=== PATIENT | female | born 1970 | race Caucasian/White ===

== ENCOUNTER 2017-02-02 15:26 | Inpatient (IN) | payer OTHER ==
[~2017-02-02] VITALS: Ht 170.2 cm; Wt 64.8 kg
[2017-02-02] VITALS (7 sets, daily range): BP systolic 111–149; BP diastolic 72–81; PULSE 89–123; RESP 16–29; O2SAT 97–98
[~2017-02-02 15:26] MED LIST: ARIP10TA16 PO; ASPI-973 PO; BIMA2.5D6 OD; BUTA-238 PO; CLOP75TA28 PO; ESTR2TAB2 PO; GABA800T2 PO; INSLIS SQ; METO25TA6 PO; MULT1CAP33 PO; PROG100C6 PO; THYR60TA2 PO; TOPI50TA88 PO; VENL225T3 PO; VERA240T97 PO; humalog insulin pump SUBQ
--- NOTE | 2017-02-02 15:56 | ED.REPORT ---
HPI-General Illness Date of Service Feb 02, 2017 ED Provider: Una Gregory MD Pt is a 46 year old female with a history of Type 1 DM who was sent to the ED via EMS from with concerns for multiple syncopal episodes last night. Her children report noticing some "shaking activity" during her syncope. Pt reports that she first started having syncopal episodes one month ago. She reports that at that time she went to [place] and was diagnosed with dehydration. She reports that subsequently she was placed on an antibiotic by her PCP, and her syncopal episodes ceased until yesterday. She had 3 syncopal episodes yesterday. Pt reports that prior to loosing consciousness she is able to feel her heart rate increasing and becoming diaphoretic. Post syncope, she heart short of breath and continuously diaphoretic. Pt denies any chest pain. She reports that she had a heart attack in 07/2015 and she had a STENT placed, she denies this episode feeling similar. Pt reports shortness of breath for the majority of the day today. Nursing Notes Stated Complaint: SYNCOPE Chief Complaint: General Complaint Nursing Notes Reviewed: Yes Allergies: Coded Allergies: Penicillins (Verified Allergy, Severe, ANAPHYLAXIS, 10/21/15) quetiapine (Verified Allergy, Unknown, 10/21/15) Uncoded Allergies: nicotine patch (Adverse Reaction, Intermediate, 03/26/13) Scheduled ([Testosterone Cr Comp]) 0.1 ML TOPICAL QAM DAB SMALL AMT TO WRISTS Amitriptyline (Amitriptyline) 25 Mg Tab 50-75 MG PO HS Aspirin (Aspirin) 81 Mg Tablet 81 MG PO DAILY Clopidogrel (Clopidogrel) 75 Mg Tablet 75 MG PO DAILY Estradiol (Estradiol) 2 Mg Tablet 2 MG PO QAM Gabapentin (Gabapentin) 800 Mg Tablet 1,600 MG PO BID EVENING AND AT HS Insulin Human Lispro (HumaLOG U100 Insulin Vial) 100 Unit/Ml Unit 0.9 UNITS SQ ASDIRECTED INSULILN 22 UNITS/DAY BASAL RATE PER INSULIN PUMP. Insulin Lispro (HumaLOG U100 Insulin Cartridge Refill) 100 Unit/1 Ml Cartridge 2 UNIT SUBQ TIDWM Methylphenidate (Methylphenidate) 10 Mg Tablet 10 MG PO DAILYWL Methylphenidate ER (Concerta) 36 Mg Tab.er.24 36 MG PO QAM Multivitamin (Multivitamins) 1 Each Capsule 1 EACH PO DAILY Progesterone,Micronized (Progesterone) 100 Mg Capsule 200 MG PO QAM Rosuvastatin Calcium (Rosuvastatin Calcium) 20 Mg Tablet 20 MG PO QAM Thyroid,Pork ([place] Thyroid) 60 Mg Tablet 60 MG PO EVERY OTHER DAY Venlafaxine ER (Venlafaxine ER) 225 Mg Tab.er.24 225 MG PO QAM Scheduled PRN Acetaminophen (Acetaminophen) 325 Mg Tablet 650 MG PO Q6H PRN PRN For Pain Gabapentin (Gabapentin) 800 Mg Tablet 1,600 MG PO QAM PRN PRN NEUROPATHIC PAIN Ibuprofen (Ibuprofen) 600 Mg Tablet 600 MG PO QID PRN PRN For Pain Miscellaneous Medications ([humalog insulin pump]) SUBQ General Time Seen by MD: 15:51 Chief Complaint Other (Syncope, Uncontrollable hyperglycemia) Hx Obtained From: Patient Arrived By: Walk-in (Sent from Urgent Care) Sudden in Onset?: No Onset Occurred: Yesterday Symptom Duration: Since onset Severity: Current: No pain currently Severity: Maximum: No pain Similar Sx Previous: Yes Past Medical History Past Medical History Notes: Admit to [facility] for DKA 10/2015, + CAD/troponins -> Taken to [facility] lab[facility] (complex anatomy - see cardiology notes, plan for possible intervention at [facility] possibly next month-not scheduled Past Medical History Gastroporesis Franky's disease Type 1 diabetes mellitus for 21+ years -peripheral neuropathy -History of DKA. History of alcohol abuse, quit four years ago. Hypothyroidism. LUANA plus BSO for painful endometriosis. History of difficulty emptying bladder, on Flomax Frontal lobe syndrome Sleep apnea PTSD Interstitial cystitis Adhesive capsulitis H. pylori infection Pancreatitis Reports: Coronary artery disease, Diabetes mellitus Reports: Depression, Migraines Past Surgical History Colonoscopy Tubal ligation Cholecystectomy Hysterectomy Caredaiac Cath - complex lesion involving LAD with significant collaterals Family History HI HTN Hyperlipidemia NO diabetes in family Reports: Cancer Smoking History Former Smoker Social History Alcohol abuse x25 years with 6 years of sobriety Alcohol Use: Denies alcohol use Drug Use: Denies drug use Other Social History: Local resident Ambulatory Status Independent Review of Systems Full Review of Systems Constitutional: Reports: Malaise, Weakness - generalized, Denies: Chills, Fever Respiratory: Reports: Shortness of breath, Denies: Non-productive cough, Wheezing Cardiovascular: Reports: Palpitations, Syncope, Denies: Chest pain GI: Denies: Abdominal pain, Constipation, Diarrhea, Nausea, Vomiting Female: Denies: Dysuria, Flank pain, Urinary frequency, Urinary urgency Musculoskeletal: Denies: Back pain, Extremity pain, Neck pain Skin: Reports Diaphoresis Neurologic: Reports: Shaking, Syncope, Denies: Change LOC, Dizziness, Headache, Weakness Complete sys rev & neg: except as marked. Physical Exam Vital Signs Vital Signs Date Time Temp Pulse Resp B/P Pulse Ox O2 Delivery O2 Flow Rate FiO2 02/02/17 16:49 123 29 149/79 98 Room Air 02/02/17 15:35 37.3 106 24 134/76 98 Room Air Initial VS: Reviewed Head / Eyes: Atraumatic, Normocephalic, PERRL Neck: Supple, Non-tender, Full range of motion Respiratory: Breath sounds normal, Clear to auscultation, No respiratory distress Abdomen / GI: Soft, Non-tender, No guarding, No rebound, No distention Skin: Warm, Dry, No cyanosis Neurologic: Alert, Oriented, Nonfocal General/Constitutional: Awake, Alert Appropriate Diaphoretic ENT: Atraumatic, Airway patent Mouth: Positive: Mucous membranes dry Cardiovascular: No murmurs Heart Rate / Rhythm: Positive: Tachycardia Ankle / Foot: Neurologic intact, Vascular intact 2nd and 3rd toe and ecchymotic with swelling at the base of the of the 2nd toe. Interpretation & Diagnostics Lab Results Interpretation Result Diagram: 02/02/17 1538 02/02/17 1600 Test 02/02/17 15:38 02/02/17 16:00 White Blood Count 11.9th/mm3 (3.8-10.1) Red Blood Count 4.22mil/mm3 (3.90-5.20) Hemoglobin 13.6g/dL (12.0-15.6) Hematocrit 38.0% (35.0-46.0) Mean Corpuscular Volume 90.0fL (81-100) Mean Corpuscular Hemoglobin 32.2pg (27.0-35.0) Mean Corpuscular Hemoglobin Concent 35.8% (32.0-37.0) Red Cell Distribution Width 12.6% (12.3-15.4) Platelet Count 168bil/L (150-400) Neutrophils (%) (Auto) 67% (40-74) Lymphocytes (%) (Auto) 25% (14-46) Monocytes (%) (Auto) 7% (4-12) Eosinophils (%) (Auto) 1% (0-5) Basophils (%) (Auto) 0% (0-3) Activated Partial Thromboplast Time 23.3sec (22.8-33.0) D-Dimer 0.81mg/L FEU (<0.50) Sodium Level 135mEq/L (134-144) Potassium Level 4.0mEq/L (3.5-5.2) Chloride Level 100mEq/L (97-108) Carbon Dioxide Level 19mmol/L (18-29) Blood Urea Nitrogen 19mg/dL (6-24) Creatinine 0.78mg/dL (0.57-1.00) Estimat Glomerular Filtration Rate 113mL/min (>59) Glucose Level 385mg/dL (60-99) Calcium Level 10.2mg/dL (8.5-10.1) Total Bilirubin 0.2mg/dL (0.0-1.2) Aspartate Amino Transf (AST/SGOT) 25U/L (0-50) Alanine Aminotransferase (ALT/SGPT) 23U/L (0-32) Alkaline Phosphatase 163U/L (25-150) Total Creatine Kinase 91U/L (21-215) Creatine Kinase MB 2.1ng/mL (0.0-5.3) Creatine Kinase MB % % (0.0-5.0) Troponin T < 0.010ug/L (0.0-0.011) Total Protein 7.1g/dL (6.4-8.4) Albumin 4.1g/dL (3.4-5.0) Thyroid Stimulating Hormone (TSH) 2.130uIU/mL (0.450-4.500) Free Thyroxine 1.17ng/dL (0.82-1.77) Lab Results Interpretation: Blood Sugar: 362 ECG Interpretation ECG Interpretation: Sinus Tachy - [address] depression in lead [address] elevation in V2 and V3 Slight change from 12/04/2015 Not currently in STEMI Time: 15:41 Interpreted by: ED physician Repeat ECG: Repeat ECG unchanged X-Ray Chest Interpretation Chest Xray Interpretation: IMPRESSION: No acute process. Dictated by: Jade Burnett M.D. on 02/02/2017 at 16:11 Interpretation / Wet Read by: Interpret - Radiologist Re-Eval/Medical Decision Med Decision/Clinical Course 46-year-old type I diabetic presents with multiple syncopal episodes yesterday each associated with significant diaphoresis and dyspnea following them. No related to exertional dyspnea and no chest pain. 2 episodes she did feel that she was tachycardic. She does have a cardiac history with stents about 18 months ago. Over the last 24 hours her blood sugars significantly elevated more difficult to control. On exam she is significantly diaphoretic no chest pain no dyspnea tachycardic with some subtle EKG changes that are different from previously. Given the overall history and constellation of symptoms concerning for acute coronary syndrome is entertained. She is given aspirin and started on a heparin drip care is reviewed with cardiology and hospitalist. Given her negative troponin and no acute ST elevations at this time will be admitted to the floor for additional observation Source of Hx: Old records Time of Eval: 16:54 Re-Evaluation/Progress Note: Pt is rechecked and informed of her unchanged repeat EKG, as well as the consulations with both cardiology and the hospitalist. She understands the plan to admit her at this time. All questions are addressed. Consultation #1: Referral / Consult Name: Kojo Smith MD Consulted With: Cardiology Call Returned at: 16:44 Retail Buyer: Will see patient, Agrees with plan Note: Agrees with Heparin and admission. He agrees to look at the EKG Consultation #2: Referral / Consult Name: Jarocho Odonnell MD Consulted With: Hospitalist Call Returned at: 16:45 Retail Buyer: Will see patient, Agrees with plan, Accepts admit Counseled Regarding: Diagnosis, Lab results, Need for follow-up, When/why to return to ED Discharge & Departure Primary Impression: ACS (acute coronary syndrome) Additional Impression: Hyperglycemia Disposition: ADMITTED TO HOSPITAL Discharge Condition All VS Reviewed: Yes Condition: Stable Referrals: Tito Knight MD (PCP) Julius Attestation Portions of this note were transcribed by Kaia Mack. I, Dr. Gregory personally performed the history, physical exam and medical decision-making; I reviewed and confirmed the accuracy of the information in the transcribed note. Signed by: Julius Lucas, 02/02/2017 [id number] copies to: Tito Knight MD, Shawna L MD Feb 02, 2017 15:56 MAGGIE MACK Feb 02, 2017 16:01
[2017-02-02 16:00] LABS: BASOPHILS % (AUTO) 0 % (0-3); EOSINOPHILS % (AUTO) 1 % (0-5); MONOCYTES % (AUTO) 7 % (4-12); Mean Corpuscular Hemoglobin 32.2 pg (27.0-35.0); NEUTROPHILS % (AUTO) 67 % (40-74); Platelet Count 168 bil/L (150-400)
--- NOTE | 2017-02-02 16:13 | DRSVH ---
PROCEDURE: X-RAY CHEST ONE VIEW, PORTABLE ([id number]) INDICATIONS: syncope TECHNIQUE: One view of the chest was acquired. COMPARISON: [facility], CR, XR CHEST 1VW (PORTABLE), 12/04/2015, 22:37. FINDINGS: Surgical changes and devices: None. Lungs and pleura: No pleural effusions or pneumothorax. Lungs are clear. Mediastinum: Mediastinal contours appear normal. Heart size is normal. Bones and chest wall: No suspicious bony lesions. Overlying soft tissues appear unremarkable. IMPRESSION: No acute process. Dictated by: Jade Burnett M.D. on 02/02/2017 at 16:11 Approved by: Jade Burnett M.D. on 02/02/2017 at 16:11
[2017-02-02] MEDS ORDERED: 0.9% Sodium Chloride 1,000 ML IV ONE (16:15)
[2017-02-02 16:16] LABS: TROPONIN T < 0.010 ug/L (0.0-0.011)
[2017-02-02 16:25] LABS: Magnesium 1.7 mg/dL (1.6-2.6)
[2017-02-02] MEDS ORDERED: Heparin 25K Unit/500mL 0.45 NS 25,000 UNIT in IV Premix 1 EACH IV ONE (16:30)
[2017-02-02] MEDS ORDERED: Heparin 5,000 Unit/mL Inj IVPUSH ONE (16:30)
--- NOTE | 2017-02-02 17:05 | PCM.HPMED ---
Subjective Date of Service Feb 02, 2017 Primary Provider: Admitting Physician: Primary Care Physician: Tito Knight MD Attending Physician: Chief Complaint: Syncope History of Present Illness: 46-year-old female with a history of cardiac arrest 2-3 years ago with minor brain damage consisting of short and long-term memory impairment, type I diabetes complicated by peripheral neuropathy and gastroparesis, myocardial infarction with stenting in July 2015, and psychiatric conditions including PTSD, depression, and frontal lobe syndrome, who presents to emergency department from acute care due to multiple syncopal episodes yesterday. Per patient's report, her syncopal episodes started 1 month ago. At that time she reports 8-9 episodes over 2-3 day period. She was seen and evaluated and reports reports that previously she had been told that it was due to dehydration. Since that time she has been free of these episodes until yesterday when she had 3 episodes. She states that during these episodes she begins to feel lightheaded, dizzy, but cannot remember any other details. She will state that they almost always occur while she was standing or after arising from a seated position. She denies any bowel or bladder incontinence. Does not describe any postictal state. Patient's children report some shaking activity, and the patient states that she felt her heart rate increase, became diaphoretic, x-ray shortness of breath. After she was aroused she continued to be diaphoretic and have shortness of breath but denies any chest pain. Patient manages her insulin using an insulin pump with carb counting. Her previous cardiac arrest has very little details this memory was impaired but she relates that it was due to hypoglycemia due to insulin pump failure with an regulated insulin administration. Review of Systems: Complete review of systems performed; pertinent positives negative as per history of present illness all other systems reviewed and are negative Allergies Coded Allergies: Penicillins (Verified Allergy, Severe, ANAPHYLAXIS, 10/21/15) quetiapine (Verified Allergy, Unknown, 10/21/15) Uncoded Allergies: nicotine patch (Adverse Reaction, Intermediate, 03/26/13) Home Medications Aripiprazole (Aripiprazole) 10 Mg Tablet 10 MG PO DAILY Aspirin (Aspirin) 81 Mg Tablet 81 MG PO DAILY Bimatoprost (Bimatoprost) 0.03 % Drops 1 DROP OD q4hrs started 10/19/15 Clopidogrel (Clopidogrel) 75 Mg Tablet 75 MG PO DAILY Estradiol (Estradiol) 2 Mg Tablet 2 MG PO DAILY Gabapentin (Gabapentin) 800 Mg Tablet 1,600 MG PO TID Insulin Human Lispro (HumaLOG U100 Insulin Vial) 100 Unit/Ml Unit 0 SQ ASDIRECTED Metoprolol Tartrate (Metoprolol Tartrate) 25 Mg Tablet 12.5 MG PO BID Multivitamin (Multivitamins) 1 Each Capsule 1 EACH PO DAILY Progesterone,Micronized (Progesterone) 100 Mg Capsule 200 MG PO DAILY Thyroid,Pork ([place] Thyroid) 60 Mg Tablet 60 MG PO DAILY Topiramate (Topiramate) 50 Mg Tablet 50 MG PO BID Venlafaxine ER (Venlafaxine ER) 225 Mg Tab.er.24 225 MG PO DAILY Verapamil ER (Verapamil ER) 240 Mg Tber 240 MG PO BID Butalbital/Acetamin/Caff 50-300-40 mg (Butalbital/Acetamin/Caff 50-300-40 mg) 1 Each Tablet 1-2 TABLET PO TID PRN PRN For Headache PMH Cardiac arrest second to hypoglycemia with residual neurological deficits of memory Gastroporesis Franky's disease Type 1 diabetes mellitus for 21+ years with peripheral neuropathy History of alcohol abuse, quit four years ago. MO in July 2015 LUANA plus BSO for painful endometriosis. History of difficulty emptying bladder, on Flomax Frontal lobe syndrome Sleep apnea PTSD Interstitial cystitis Depression Migraines Surgical History Colonoscopy Tubal ligation Cholecystectomy Hysterectomy Caredaiac Cath - complex lesion involving LAD with significant collaterals; stented Family History Myocardial infarction 07/2015S/P stenting HTN Hyperlipidemia NO diabetes in family Cancer Social History Hx Alcohol Use: Yes (alcohol abuse for 25 years; sober for last 6) Hx Substance Use: Yes (marijuana injest it not smoke it ) Hx Tobacco Use: Yes (USES E-CIGARETTE. Additionally, h/o tobacco - 30 pyh, but quit 6 mo ago) Smoking Status: Former Smoker (20-30 pack years) Living Arrangement: with Family Additional Information Patient used cocaine for 10-20 years Previously his methamphetamines for about 6 months Neither of these and used in the last 10 years Exam Vital Signs Vital Sign - Last Date Time Temp Pulse Resp B/P Pulse Ox O2 Delivery O2 Flow Rate FiO2 02/02/17 16:49 123 29 149/79 98 Room Air 02/02/17 15:35 37.3 Exam General: Pleasant appearing female, no acute distress HEENT: PERRLA, EOMI, nonicteric, membranes moist Lymph: No lymphadenopathy Cardio: Regular rate and rhythm no murmurs rubs or gallops Respiratory: CTA bilaterally, no wheezes, no crackles Abdomen: Soft, positive bowel sounds, nontender, nondistended Extremities: No edema, 4 x 4 strength, sensation intact Psych: Appropriate mood and affect Neuro: CN II through XII grossly intact, sensation intact throughout Skin: No rash Lab and Diagnostics Result Diagram: 02/02/17 1538 02/02/17 1600 X-Rays, CTs and MRIs Chest x-ray IMPRESSION: No acute process. Dictated by: Jade Burnett M.D. on 02/02/2017 at 16:11 Assessment & Plan 46-year-old female with a past medical history notable for numerous psychiatric conditions and frontal lobe syndrome, as well as an MO S/P stenting, who presents to emergency department after suffering 3 syncopal episodes at home with reported diaphoresis and shortness of breath without chest pain. Syncope; present on admission; ongoing -Patient's had multiple syncopal episodes over the last month almost exclusively after rising from a chair -Likely due to autonomic dysregulation secondary to diabetes; less likely alternatives are acute arrhythmias/ACS (no chest pain), seizure, or PE -Well score was low (1.5) which recommends against checking a d-dimer, however, patient on hormone therapy so DDIMER ordered -Patient had questionable ST changes on EKG -Recheck EKG in the morning, Trend troponin, continue heparin until Dr. Smith (cardiology) is able to weigh in -Continue aspirin and Plavix -Maintain on telemetry -Orthostatics ordered -Out of bed ONLY with assist Type I diabetes; present on admission; stable -Patient maintained on insulin pump and carb counting -Recheck A1c -Allow patient to manage her diabetes with insulin while here excellent Hypothyroidism; present on admission; ongoing -Patient uses [place] Thyroid -TSH/T4 Depression; present admission; stable -Effexor has outpatient Sleep apnea; present admission; stable -Patient will need to bring in CPAP machine -Son bringing in machine Memory impairment secondary to cardiac arrest; stable -Should patient's memory deteriorate further neurological signs develop consider consulting Dr. guzman Disposition: Patient is being admitted to inpatient status with expected length of stay greater than two midnights due to to severity of presentation, duration of treatment, and risks of adverse events disposition Pain Evaluation: Adequate Pain Control GI Prophylaxis: Not indicated VTE Prophylaxis: Other (on heparin) Resuscitation Status: CPR: Attempt Resuscitation Time spent 45 minutes Attending Statement The patient was seen and examined together with on 02/02/17 I agree with the history, exam findings, and plan as outlined in the note above. I did participate in all aspects of the services provided today, including documentation and the plan of care. The general plan at this point is to monitor on telemetry and clinically observe for any further episodes. We will also check orthostatics to see if she is orthostatic. Will Also follow blood sugars to rule out hypoglycemia. Cuauhtemoc Clark DO Feb 02, 2017 17:05 Jarocho Odonnell MD Feb 03, 2017 15:38
[2017-02-02] MEDS ORDERED: Ondansetron 2 mg/mL 2 mL Inj IVPUSH PRN (17:55)
[2017-02-02] MEDS ORDERED: Alum-Mag Hydrox-Simeth 30 mL Suspension PO PRN (17:55)
[2017-02-02] MEDS ORDERED: Polyethylene Glycol (PEG) 17 Gm Powder PO PRN (17:55)
[2017-02-02 18:25] LABS: APPEARANCE,URINE CLEAR (CLEAR,HAZY); COLOR,URINE YELLOW (YELLOW); OCCULT BLOOD,URINE NEGATIVE (NEGATIVE); UROBILINOGEN,URINE NORMAL (NORMAL)
[2017-02-02] MEDS ORDERED: GABA800T2 PO (18:30)
[2017-02-02] MEDS ORDERED: ACET325T51 PO (18:35)
[2017-02-02] MEDS ORDERED: AMT25T PO (18:35)
[2017-02-02] MEDS ORDERED: METH-295 PO (18:35)
[2017-02-02] MEDS ORDERED: ROSU20TA27 PO (18:35)
[2017-02-02] MEDS ORDERED: IBUP-1827 PO (18:35)
[2017-02-02] MEDS ORDERED: METH36TA4 PO (18:35)
[2017-02-02] MEDS ORDERED: INSU100C11 SUBQ (18:38)
[2017-02-02] MEDS ORDERED: Heparin 25K Unit/500mL 0.45 NS 25,000 UNIT in IV Premix 1 EACH IV SCH (18:40)
[2017-02-02] MEDS ORDERED: [UNRECOGNIZED DRUG - OTHER] TOPICAL (18:41)
[2017-02-02] MEDS ORDERED: Insulin LISPRO 300 Unit/3 mL Inj SUBQ SCH (18:50)
[2017-02-02 19:01] LABS: Creatine Kinase 91 U/L (21-215)
[2017-02-02] MEDS: 0.9% Sodium Chloride 1,000 ML IV SCH (20:10)
[2017-02-03] VITALS (17 sets, daily range): BP systolic 105–123; BP diastolic 43–77; PULSE 81–105; RESP 16–22; O2SAT 95–98
[2017-02-03] MEDS: Heparin 5,000 Unit/mL Inj IVPUSH PRN ×2 (01:41→17:19)
[2017-02-03] MEDS: 0.9% Sodium Chloride 1,000 ML IV SCH (05:47)
--- NOTE | 2017-02-03 06:20 | NUR ---
NOC PT denies any CP, SOB or palpitations this shift. PT has been in NSR. CPap at bedside, but pt did not use last night. Heparin gtt infusing per protocol. PT has an insulin pump on LUE and administers her own insulin. BG checks are done by RN. BG was 225 at 2200. PT is up independently to the bathroom. Gait is steady. PT does have diabetic neuropathy, but it does not impair mobility. Trop's have been negative. PLan is for echo today. Continue with hep gtt. VS WNL.
[2017-02-03 06:40] LABS: TROPONIN T 0.01 ug/L (0.0-0.011)
[2017-02-03] MEDS: Venlafaxine XR 75 mg ER24 Capsule PO SCH (08:50)
--- NOTE | 2017-02-03 10:13 | DRSVH ---
[facility] [address] [place] [address] Echocardiogram Report Name: SHAD RUSH EStudy Date : 02/03/2017 Height: 67 in Hospital Exam Location: [facility] Weight: 137 lb Gender: Female BSA: 1.7 m2 : 1970 Age: 46 yrs BP: 118/75 mmHg Reason For Study: SYNCOPE, CAD Ordering Physician: Kojo Smith Performed By: Farshad Bejarano Referring Physician: Tito Knight Interpretation Summary The ejection fraction is estimated to be 55-60%. There is a small area in the mid to distal septum that appears thinned. There is trace mitral regurgitation. There is trace tricuspid regurgitation. The right ventricular systolic pressure is estimated at 25 mmHg assuming a right atrial pressure of 3 mm Hg. Procedure: A two-dimensional transthoracic echocardiogram with color flow and Doppler was performed. The study quality was technically good. Comparison is made with the echocardiogram of 10/22/15. The patient was in normal sinus rhythm during the exam. Left Ventricle: The left ventricle is normal in size. There is normal left ventricular wall thickness. The ejection fraction is estimated to be 55-60%. There is a small area in the mid to distal septum that appears thinned. Right Ventricle: The right ventricle is normal in size and function. Atria: Both atria are normal in size. The interatrial septum is intact with no evidence for an atrial septal defect. Mitral Valve: The mitral valve is normal in structure and function. The mitral valve leaflets are slightly calcified. There is trace mitral regurgitation. Aortic Valve: The aortic valve is trileaflet. The aortic valve opens well. No aortic regurgitation is present. Tricuspid Valve: The tricuspid valve is normal in structure and function. There is trace tricuspid regurgitation. The right ventricular systolic pressure is estimated at 25 mmHg assuming a right atrial pressure of 3 mm Hg. Pulmonic Valve: The pulmonic valve is not well seen, but is grossly normal. There is no pulmonic valvular regurgitation. Great Vessels: The aortic root is normal size. The dimensions of the ascending aorta are normal. The pulmonary artery is normal size. The IVC is of normal diameter and collapses greater than 50% with a sniff. This suggests a low right atrial pressure of 3 mm Hg. Pericardium/ Pleura There is no pericardial effusion. There is no pleural effusion. MMode/2D Measurements & Calculations LVIDd: 4.3 cm LA dimension: 3.4 cm RA long axis Ao root diam LVIDs: 2.6 cm FS: 38.3 % LA A2 area: 17.3 cm RA area Aortic Jxn: 2.3 cm EPSS: 0.42 cm LA A4 area: 15.8 cm asc Aorta Diam IVSd: 0.79 cm LA length (vol) : 12.8 cm LVPWd: 0.80 cm RA vol Ao Arch Diam (Prox LA vol: 45.1 ml : 32.9 ml Trans): 2.5 cm LA vol index RA : 19.1 mm2 IVC diam: 2.0 cm LV sarabia. diameter/BSA LV sys. diameter/BSA (cm/m^2): 2.5 (cm/m^2): 1.5 Doppler Measurements & Calculations Ao V2 max MV E max atif MV E/A: 1.2 TR max atif : 134.4 cm/sec : 85.2 cm/sec Med Peak E' Atif : 231.9 cm/sec Ao max PG MV A max atif TR max PG : 7.2 mmHg : 71.7 cm/sec E/E' med: 9.5 : 21.5 mmHg Ao mean PG Lat Peak E' Atif PA V2 max : 4.6 mmHg : 73.0 cm/sec E/E' lat: 6.3 PA mean PG E/e' average: 7.9 PA Accel Time : 0.15 sec MV dec time Ao V2 mean PA V2 mean : 0.16 sec : 104.9 cm/sec : 52.4 cm/sec Ao V2 VTI: 27.9 kenny HUSTON pr(Accel) : 6.6 mmHg Electronically signed by: Javier Rivas on Reading Physician:02/03/2017 10:12 AM
[2017-02-03] MEDS: Progesterone 100 mg Micronized Capsule PO SCH (10:53)
--- NOTE | 2017-02-03 11:05 | NUR ---
Orthos Lyin/83 Sittin/82 Standin/79 Addendum: 02/03/17 at 1930 by ANTONIA URRUTIA RN No c/o dizziness, headache, or lightheadedness. Independent in the room.
--- NOTE | 2017-02-03 11:30 | CONS ---
[address] [address] CONSULTATION REPORT PATIENT: SHAD RUSH : 1970 MR#: [id number] ADMIT: 02/02/2017 JOB ID: [id number] DATE OF SERVICE: 02/03/2017 CHIEF COMPLAINT: Syncope. REQUESTED BY: Hospitalist team. HISTORY OF PRESENT ILLNESS: This 46-year-old female comes into the hospital with history of syncopal episodes. 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 She states that she has had witnessed syncopal episodes. These usually happen when she stands up too suddenly or if she has been standing for a while. She can sometimes get a premonition. She does not feel well. She feels nauseous and then hits the ground. For the most part, she regains consciousness very quickly. There is no history of any bladder or bowel incontinence. She does feel somewhat weak and washed out after the episode, but denies any history of true postictal state. According to the notes there has been some shaking activity noted by her children. The patient is quite aware of hypoglycemia causing syncope, and she checks her blood sugars fairly regularly. She manages her own insulin pump. A few years ago she did have an episode of cardiac arrest secondary to insulin pump failure. She does have some element of short and long-term memory impairment. Next she states once in a while she notices palpitations before the syncopal episodes, but she has not had any chest discomfort. REVIEW OF SYSTEMS: Comprehensive review of system was done pertinent positives and negatives are reviewed in the HPI. In addition the patient has known history of coronary artery disease she was admitted last year with DKA and was found to have elevated troponins which led to an angiogram. Surprisingly her coronaries barring the LAD looked very showed and do not show the typical diabetic disease and in its mid segment had a longer area of subtotal occlusion. The patient did not get an intervention during that admission. She was not satisfied with medical therapy and went to [facility] with the advice of a friend where her LAD was recannulized with bioabsorbable stent. There is no history of GI or bleeding. No strokes. PAST MEDICAL HISTORY: Cardiac arrest, gastroparesis, diabetes, Franky's disease, non ST-elevation OR, history of drug abuse, sleep apnea, ST depression, migraines. ALLERGIES: 1. PENICILLIN. 2. QUETIAPINE. 3. NICOTINE PATCH. HOME MEDICATIONS: 1. Aspirin. 2. Clopidogrel. 3. Estradiol. 4. Gabapentin. 5. Insulin. 6. Metoprolol. 7. Multivitamin. 8. Progesterone. 9. Thyroid. 10. Venlafaxine. 11. Topiramate. 12. Verapamil. 13. Butalbital acetaminophen combination. 14. Omeprazole. FAMILY HISTORY: Negative for premature coronary artery disease. PERSONAL HISTORY: She does use marijuana and an E-cigarette. She used to do methamphetamines and cocaine. She does not use any illicit drugs currently. PHYSICAL EXAMINATION: Comfortable in no apparent distress. Vitals stable. Pulse 70, blood pressure 140/70. Neck is supple. No JVD. Chest clear. Heart sounds S1, S2, regular, no murmurs, no gallops. Abdomen is soft. Extremities negative for CCE. RELAY ADJUSTER: Alert and oriented x3. LABORATORY DATA: Reviewed. Her hemoglobin fell slightly from 13.6 to 11.2. Her troponin has been negative. Glucose was elevated at 243. Creatinine is normal at 0.6. TSH is normal as well. Her procalcitonin is mildly elevated. ASSESSMENT AND PLAN: Syncope. This seems to be secondary to autonomic dysregulation and this was probably exacerbated by the fact that the patient for the past few days had not been feeling well and probably was not eating and drinking well. Given history of coronary artery disease and with mild LV dysfunction in the anterior wall and arrhythmia is a possibility. Continue telemetry monitoring as recommended. I would also get a stress test to rule out any ischemia. A tilt-table has also been requested. I would be happy to follow this patient along with you.
--- NOTE | 2017-02-03 16:29 | DI96 ---
[address] [address] PERIPHERAL CATHETERIZATION/INTERVENTION REPORT PATIENT: SHAD RUSH : 1970 MR#: [id number] ADMIT: 02/02/2017 JOB ID: [id number] TILT-TABLE REPORT: INDICATION: Syncope. Her resting pulse was 83. Her resting blood pressure was 121/65. She stayed in a upright tilt position at 80 degrees for 35 minutes. Her max heart rate was 105. Her blood pressure at that time was 114/76. Her lowest blood pressure was 105/74. There was no reproduction of her clinical symptoms. FINAL IMPRESSION: Negative head-upright tilt-table test.
--- NOTE | 2017-02-03 17:02 | PCM.PNMED ---
Subjective Date of Service Feb 03, 2017 Subjective Ms. Lena Pozo is a 46-year-old female with a history of cardiac arrest 2-3 years ago with minor brain damage consisting of short and long-term memory impairment, type I diabetes complicated by peripheral neuropathy and gastroparesis, myocardial infarction with stenting in July 2015, and psychiatric conditions including PTSD, depression, and frontal lobe syndrome, who presents to emergency department from acute care due to 1 month history of multiple syncopal episodes and 3 episodes yesterday. She states that during these episodes she begins to feel lightheaded, dizzy, but cannot remember any other details. She will state that they almost always occur while she was standing or after arising from a seated position. She denies any bowel or bladder incontinence. Does not describe any postictal state. Patient's children report some shaking activity, and the patient states that she felt her heart rate increase, became diaphoretic, as well as shortness of breath that continued afterwards. Patient manages her insulin using an insulin pump with carb counting. Her previous cardiac arrest has very little details this memory was impaired but she relates that it was due to hypoglycemia due to insulin pump failure with an regulated insulin administration. Today she reports feeling much better, aside from her 3rd and 4th toes on the right side, which she thinks they're broken after the fall yesterday. She denies headache, dizziness, sore throat, cough, chest pain, shortness of breath , abdominal pain, nausea, vomiting, constipation, and diarrhea. The patient is voiding and eliminating without difficulty. Exam Vital Signs Vital Sign - Last Date Time Temp Pulse Resp B/P Pulse Ox O2 Delivery O2 Flow Rate FiO2 02/03/17 16:32 36.8 94 22 112/73 98 Room Air Intake and Output 02/02/17 02/02/17 02/03/17 Cumulative From/Thru 15:00 23:00 07:00 02/02/17 15:35 - 02/03/17 06:36 Intake Total 1000 ml 1670 ml 2670 ml Output Total 750 ml 1200 ml 1950 ml Balance 250 ml 470 ml 720 ml Intake Oral 0 ml 500 ml 500 ml IV Total 1000 ml 1170 ml 2170 ml Output Urine Total 750 ml 1200 ml 1950 ml # Voids 1 1 # Bowel Movements 0 0 0 Exam General: Pleasant appearing female, no acute distress HEENT: PERRLA, EOMI, nonicteric, membranes moist Lymph: Single swollen lymph node post mandibular/infra auricular on the right side, non tender and immobile roughly 1-2 cm. ,no other lymphadenopathy Cardio: Regular rate and rhythm no murmurs rubs or gallops Respiratory: CTA bilaterally, no wheezes, no crackles Abdomen: Soft, positive bowel sounds, nontender, nondistended Extremities: No edema, 4 x 4 strength, sensation intact Psych: Appropriate mood and affect Neuro: CN II through XII grossly intact, sensation intact throughout Skin: No rash IVs and Medications Medications Reviewed: Medications were reviewed in detail Lab and Diagnostics Result Diagram: 02/03/17 0725 02/03/17 0420 X-Rays, CTs and MRIs Chest x-ray IMPRESSION: No acute process. Dictated by: Jade Burnett M.D. on 02/02/2017 at 16:11 Assessment & Plan 46-year-old female with a past medical history notable for numerous psychiatric conditions and frontal lobe syndrome, as well as an MS S/P stenting, who presents to emergency department after suffering 3 syncopal episodes at home with reported diaphoresis and shortness of breath without chest pain. Syncope; present on admission; ongoing - Patient's had multiple syncopal episodes over the last month almost exclusively after rising from a chair. - Likely due to autonomic dysregulation secondary to diabetes; less likely alternatives are acute arrhythmias/ACS (no chest pain), seizure, or PE - Well score was low (1.5) which recommends against checking a d-dimer, however , patient on hormone therapy so DDIMER ordered - Continue aspirin and Plavix. - Maintain on telemetry. - Orthostatics and tilt table test pending. - Out of bed ONLY with assist. - Cardiology consulted, recommendations and expertise greatly appreciated. - Patient had questionable ST changes on EKG. - Scheduled for a stress test 02/04/17. Type I diabetes; present on admission; stable and active - Patient maintained on insulin pump and carb counting - Recheck A1c - Allow patient to manage her diabetes with insulin while here excellent - Heart / diabetic diet. Hypothyroidism; present on admission; ongoing - Patient uses [place] Thy[facility] - TSH/T4 Depression; present admission; stable - Effexor has outpatient Sleep apnea; present admission; stable - Patient will need to bring in CPAP machine - Son bringing in machine Memory impairment secondary to cardiac arrest; stable -Should patient's memory deteriorate further neurological signs develop consider consulting Dr. guzman Disposition: Patient is being admitted to inpatient status with expected length of stay greater than two midnights due to to severity of presentation, duration of treatment, and risks of adverse events disposition Pain Evaluation: Adequate Pain Control GI Prophylaxis: Not indicated VTE Prophylaxis: Other (on heparin) Resuscitation Status: CPR: Attempt Resuscitation Attending Statement The patient was seen and examined together with Dr. Reid on 02/02/2017 and I agree with the history, exam findings, and plan as outlined in the note above. I did participate in all aspects of the services provided today, including documentation and the plan of care. The plan today will include a tilt table. We will have to reapproach a stress test likely tomorrow morning. No change in medications. YUE REID DO Feb 03, 2017 17:02 Jarocho Odonnell MD Feb 04, 2017 11:09
--- NOTE | 2017-02-03 17:57 | NUR ---
spiritual care: pt request/social work questions lengthy conversational visit. pt shared family, social and medical concerns and coping. Pt expressive about her spirituality and coping mechanisms, personal history and current stressors. Pt pleasant, calm and conversant. Prayer. pt shared specific concerns regarding health insurance and benefit profile. She is aware of help EXPERIMENTAL WORKER may be able to offer.
[2017-02-04 03:49] VITALS: BP 102/60; PULSE 63; RESP 16; O2SAT 96
[2017-02-04] MEDS: Heparin 5,000 Unit/mL Inj IVPUSH PRN (04:23)
--- NOTE | 2017-02-04 06:24 | NUR ---
Pain C/o ongoing right toe pain after fall at home. Requesting Ibuprofen, stating Tylenol doesn't work for her. MD notified and orders received. Foot elevated with ice, and Ibuprofen with good effect. Has been NPO since midnight, although does state some concern about doing treadmill test with painful toes.
[2017-02-04 07:12] LABS: Mean Corpuscular Volume 93.1 fL (81-100)
[2017-02-04 08:30] VITALS: BP 124/81; PULSE 88; RESP 18; O2SAT 97
[2017-02-04] MEDS: Progesterone 100 mg Micronized Capsule PO SCH (11:07)
[2017-02-04] MEDS: Venlafaxine XR 75 mg ER24 Capsule PO SCH (11:08)
--- NOTE | 2017-02-04 14:55 | PCM.DIMED ---
YUE REID DO 02/04/17 1455: Discharge Instructions Date of Service Feb 04, 2017 Dates of Hospitalization Feb 02, 2017 at 17:19 Discharge Diagnosis Discharge Diagnosis Syncope Type I diabetes Hypothyroidism Depression Sleep apnea Memory impairment secondary to cardiac arrest Medication Instructions Additional med instructions Continue home medications. Test Results Test Results Stress test was normal. Tilt table test was normal. Diet Discharge Diet: Heart Healthy, Diabetic Activity Discharge Activity: No restrictions Call your provider Call your provider for: Fever or Chills, Shortness of breath, Bleeding, Chest pain, Vomitting, Excessive diarrhea, Weakness (unilateral), Other (syncope) Patient Instructions Patient Instructions If you have signs of syncope or pre-syncope, please seek medical help. You can call your primary care physician or call the Emergency medical services. Follow up with your primary care regarding the use of a cardiac cath lab manager, ie.. Zio-patch or holter monitor. Follow-up plan Please follow up with your primary care physician in 1-2 weeks time. IF you do not currently have a primary care physician the [facility] residency clinic is a good option. Follow up with Dr. River with Endocrinology to help manage your Type 1 Diabetes. Follow-up Provider: Tito Knight MD Follow-up with PCP in: 2 weeks (1-2 weeks.) Provider: Jose River MD Follow-up in: 2 weeks (1-2 weeks.) Jarocho Odonnell MD 02/05/17 0859: Discharge Instructions Attending's Statement The patient was seen and examined together with Dr. Reid on 02/04/2017 and I agree with the history, exam findings, and plan as outlined in the note above. I did participate in all aspects of the services provided today, including documentation and the plan of care. Patient will have follow-up with her primary care doctor. She does have a known left anterior descending artery, we will also assist in follow-up with cardiology in the next 2-3 weeks. YUE REID DO Feb 04, 2017 14:55 Jarocho Odonnell MD Feb 05, 2017 08:59
--- NOTE | 2017-02-04 15:18 | NUR ---
Discharge Pt received information and education on hospital stay. Pt did not receive any new prescriptions at this time. Pt understands her follow-up appointments were made. IV was removed. Tele had already been discontinued. Pt left with all personal belongings and was escorted out to vehicle by a staff member.
--- NOTE | 2017-02-04 15:59 | NUR ---
Social Work Note: Initial Assessment/Discharge/Multidisciplinary Rounds Data& Assessment: EMR reviewed. Pt was discussed in AM rounds today, per pt is medically ready to discharge home via POV. KANIKA met with pt and pt family at bedside to confirm discharge plan and assess for any unmet needs, SW role explained. Discharge Planning Checklist provided. Lena Joiner is a 46 year old female admitted on 02/02/2017 for ACS. Pt has [employer] insurance. Pt expressed interest in secondary insurance coverage, SW provided pt with [employer] contact information and a financial institution president application. Pt lives in [place] with her family and is independent with all ADL's and no DME used. Pt independent with self care, MD does not identify concerns with capacity for self care. Pt drives. Pt sees Tito Knight MD for primary care. Pt does not have HH or SNF hx. Pt does not have terminal operations manager care insurance or VA benefits. SW requested DPOA paperwork. Pt daughter transporting her home today. Pt and pt family denies any other needs. No other discharge needs identified. All updated and agreeable to plan. Plan: Per pt is medically ready to discharge home via POV. Pt and pt family denies any other needs. No other discharge needs identified. All updated and agreeable to plan. MARCOS Gonzalez Addendum: 02/04/17 at 1634 by WYATT FERNANDEZ Amended: Links added.
--- NOTE | 2017-02-04 16:11 | DRSVH ---
PROCEDURE: 1 DAY PHARMACOLOGICAL STRESS TEST Rest and pharmacological stress myocardial perfusion SPECT with gated imaging and ejection fraction RADIOPHARMACEUTICAL: 8.3 mCi Tc-99m tetrafosmin IV at rest and 26.1 mCi Tc-99m tetrafosmin IV at pea k effect of pharmacological stress. A [id number] was performed. INDICATIONS: CORONARY ARTERY DISEASE. TECHNIQUE: Radiopharmaceutical was injected at peak stress test, and also at rest. SPECT images wer e obtained. SPECT myocardial perfusion images were displayed in short axis, horizontal long axis, an d vertical long axis views. Gated images were reviewed using pluriSelectQUANT software. COMPARISON: None. CARDIAC STRESS: A pharmacologic stress test was performed under the supervision of an attending staff, using an infus ion of lexiscan 0.4mg IV X1. Hemodynamic data: There is normal blood pressure and heart rate response to pharmacologic stress. Symptoms: The patient denied anginal chest pain. Aminophylline: none EKG: No diagnostic changes of ischemia; no ectopy. FINDINGS: Raw data: There is good myocardial uptake of radiotracer. No significant motion artifacts. Left ventricle function: Gated images demonstrate normal left ventricular wall thickening. No segme ntal wall motion abnormalities. No transient ischemic dilation. Left ventricle resting end diastoli c volume is 48 mL. Left ventricle stress ejection fraction is 79%; normal range is above 45%. Myocardial perfusion: Mild to moderate sized mildly severe defect in the mid to distal anterior wall at stress (supine and prone images) that is not present at rest, suggestive of ischemia in the LAD t erritory. The summed stress score 1, which I think underestimates the area and severity of ischemia based on visual assessment. IMPRESSION: Abnormal stress test consistent with ischemia in the LAD territory. 1) Abnormal myocardial perfusion study consistent with mild to moderate ischemia in the mid to distal anterior wall (LAD territory). 2) Normal left ventricular thickness, size, wall motion, and systolic function (post stress EF 79%). 3) No ECG evidence of ischemia. 4) No angina during stress test. 5) No prior nuclear stress test available for comparison. Patient had a left heart cath in 2015 that showed subtotal/chronic occlusion of the LAD with collaterals from the left circumflex artery. Keegan elate clinically and consider cardiology consult if clinically indicated. Dictated by: Autumn Araujo M.D. on 02/04/2017 at 15:58 Approved by: Autumn Araujo M.D. on 02/04/2017 at 16:09
--- NOTE | 2017-02-05 11:14 | PROG NOTE ---
[address] [address] PROGRESS NOTE PATIENT: SHAD RUSH : 1970 MR#: [id number] ADMIT: 02/02/2017 JOB ID: [id number] DATE: 02/04/2017 SUBJECTIVE: No chest discomfort. No shortness of breath. No further syncopal or presyncopal episodes. PHYSICAL EXAMINATION: Vitals stable. Pulse 88, blood pressure 124/81. Neck is supple. No JVD. Chest clear. Heart sounds S1, S2, regular. Central nervous system alert and oriented x3. The patient's stress test was reviewed. I have personally seen it. There is mild anterior photopenia. This improves upon resting images. It is mainly in the anteroapical segment. I do not feel is moderate in its severity. ASSESSMENT AND PLAN: I have discussed this with the patient. She states she is pain free. She has had no chest discomfort ever since she had a stent placed. She would like to be treated medically. If she has any further chest discomfort she will see Cardiology followup. I have advised her to follow up with . Given the lack of any high-risk features on her stress test she would like to be discharged and follow up as an outpatient. I think that is reasonable.
--- NOTE | 2017-02-07 05:50 | PCM.DC.MED ---
Discharge Summary Date of Service Feb 07, 2017 Dates of Hospitalization Date of Hospital Admission Feb 02, 2017 at 17:19 Date of Discharge: Feb 04, 2017 Providers: Admitting Physician: Jarocho Odonnell MD Primary Care Physician: Tito Knight MD Attending Physician: Jarocho Odonnell MD Diagnosis at Time of Discharge Diagnosis at Time of Discharge Syncope Type I diabetes Hypothyroidism Depression Sleep apnea Memory impairment secondary to cardiac arrest Procedures XRay, CTs & MRIs Chest x-ray IMPRESSION: No acute process. Dictated by: Jade Burnett M.D. on 02/02/2017 at 16:11 Brief History 46-year-old female with a history of cardiac arrest 2-3 years ago with minor brain damage consisting of short and long-term memory impairment, type I diabetes complicated by peripheral neuropathy and gastroparesis, myocardial infarction with stenting in July 2015, and psychiatric conditions including PTSD, depression, and frontal lobe syndrome, who presents to emergency department from acute care due to multiple syncopal episodes yesterday. Per patient's report, her syncopal episodes started 1 month ago. At that time she reports 8-9 episodes over 2-3 day period. She was seen and evaluated and reports reports that previously she had been told that it was due to dehydration. Since that time she has been free of these episodes until yesterday when she had 3 episodes. She states that during these episodes she begins to feel lightheaded, dizzy, but cannot remember any other details. She will state that they almost always occur while she was standing or after arising from a seated position. She denies any bowel or bladder incontinence. Does not describe any postictal state. Patient's children report some shaking activity, and the patient states that she felt her heart rate increase, became diaphoretic, x-ray shortness of breath. After she was aroused she continued to be diaphoretic and have shortness of breath but denies any chest pain. Patient manages her insulin using an insulin pump with carb counting. Her previous cardiac arrest has very little details this memory was impaired but she relates that it was due to hypoglycemia due to insulin pump failure with an regulated insulin administration. She was monitored via remote telemetry and planned for a stress test, however she consumed coffee and the test was postponed till the next day. She underwent a tilt-table test with normal results. She remained stable and without presyncopal or syncopal episodes throughout the day and evening leading up to the stress test. Her stress test was slightly abnormal, with recommendations from cardiology, optimized medical management and close outpatient follow up was the best treatment of choice. Follow up with Cardiology if you have continuing symptoms. PCP, and Endocrinology in 2-3 weeks. Hospital Course Syncope; present on admission; Stable Type I diabetes; present on admission; stable and active Hypothyroidism; present on admission; ongoing Depression; present admission; stable Sleep apnea; present admission; stable Memory impairment secondary to cardiac arrest; stable Exam Vital Signs (Last) Date Time Temp Pulse Resp B/P Pulse Ox O2 Delivery O2 Flow Rate FiO2 02/04/17 08:30 36.5 88 18 124/81 97 Room Air Exam General: Pleasant appearing female, no acute distress HEENT: PERRLA, EOMI, nonicteric, membranes moist Lymph: Single swollen lymph node post mandibular/infra auricular on the right side, non tender and immobile roughly 1-2 cm. ,no other lymphadenopathy Cardio: Regular rate and rhythm no murmurs rubs or gallops Respiratory: CTA bilaterally, no wheezes, no crackles Abdomen: Soft, positive bowel sounds, nontender, nondistended Extremities: No edema, 4 x 4 strength, sensation intact Psych: Appropriate mood and affect Neuro: CN II through XII grossly intact, sensation intact throughout Skin: No rash Test 02/02/17 15:38 02/02/17 16:00 02/02/17 18:00 02/02/17 19:48 Neutrophils (%) (Auto) 67% (40-74) Lymphocytes (%) (Auto) 25% (14-46) Monocytes (%) (Auto) 7% (4-12) Eosinophils (%) (Auto) 1% (0-5) Basophils (%) (Auto) 0% (0-3) D-Dimer 0.81mg/L FEU (<0.50) Total Creatine Kinase 91U/L (21-215) Creatine Kinase MB 2.1ng/mL (0.0-5.3) Creatine Kinase MB % % (0.0-5.0) Thyroid Stimulating Hormone (TSH) 2.130uIU/mL (0.450-4.500) Free Thyroxine 1.17ng/dL (0.82-1.77) Urine Color Yellow (YELLOW) Urine Appearance Clear (CLEAR,HAZY) Urine pH 6.0 (5.0-8.0) Urine Specific [place] 1.010 (1.003-1.035) Urine Protein Negativemg/dL (NEG,TRACE) Urine Glucose (UA) >1000mg/dL (NEGATIVE) Urine Ketones 15mg/dL (NEGATIVE) Urine Occult Blood Negative (NEGATIVE) Urine Nitrite Negative (NEGATIVE) Urine Bilirubin Negative (NEGATIVE) Urine Urobilinogen Normalmg/dL (NORMAL) Urine Leukocyte Esterase Negative (NEGATIVE) Urine RBC 0-2/hpf (0-2) Urine WBC 0-5/hpf (0-5) Urine Epithelial Cells Few/hpf (NONE-MOD) Urine Crystals None seen (NONE SEEN) Urine Bacteria Few/hpf (NONE-FEW) Urine Hyaline Casts None/lpf (NONE) Urine Granular Casts None seen (NONE SEEN) Urine Waxy Casts None seen (NONE SEEN) Urine Red Blood Cell Casts None seen (NONE SEEN) Urine White Blood Cell Casts None seen (NONE SEEN) Urine Mucus None seen (None Seen) Urine Trichomonas None seen (NONE SEEN) Urine Yeast None (NONE SEEN) Urinalysis Comment None Urine Culture Reflexed Not indicated Magnesium Level 1.8mg/dL (1.6-2.6) Test 02/03/17 04:20 02/03/17 07:25 02/03/17 23:19 02/04/17 03:40 Phosphorus Level 3.0mg/dL (2.5-4.9) Total Bilirubin 0.3mg/dL (0.0-1.2) Aspartate Amino Transf (AST/SGOT) 22U/L (0-50) Alanine Aminotransferase (ALT/SGPT) 18U/L (0-32) Alkaline Phosphatase 99U/L (25-150) Troponin T 0.010ug/L (0.0-0.011) Total Protein 5.1g/dL (6.4-8.4) Albumin 3.0g/dL (3.4-5.0) Hemoglobin A1c 9.0% (4.8-5.6) Hold Blue Top Tube Received (Received) White Blood Count 7.9th/mm3 (3.8-10.1) Red Blood Count 3.47mil/mm3 (3.90-5.20) Hemoglobin 11.1g/dL (12.0-15.6) Hematocrit 32.3% (35.0-46.0) Mean Corpuscular Volume 93.1fL (81-100) Mean Corpuscular Hemoglobin 32.0pg (27.0-35.0) Mean Corpuscular Hemoglobin Concent 34.4% (32.0-37.0) Red Cell Distribution Width 12.8% (12.3-15.4) Platelet Count 154bil/L (150-400) Activated Partial Thromboplast Time 35.3sec (22.8-33.0) Sodium Level 138mEq/L (134-144) Potassium Level 4.3mEq/L (3.5-5.2) Chloride Level 105mEq/L (97-108) Carbon Dioxide Level 24mmol/L (18-29) Blood Urea Nitrogen 15mg/dL (6-24) Creatinine 0.61mg/dL (0.57-1.00) Estimat Glomerular Filtration Rate 150mL/min (>59) Glucose Level 201mg/dL (60-99) Calcium Level 9.0mg/dL (8.5-10.1) Procalcitonin 0.15ng/mL (0.00-0.08) Discharge Medications Discharge Medications ([Testosterone Cr Comp]) 0.1 ML TOPICAL QAM (Reported) DAB SMALL AMT TO WRISTS Amitriptyline (Amitriptyline) 25 Mg Tab 50-75 MG PO HS (Reported) Aspirin (Aspirin) 81 Mg Tablet 81 MG PO DAILY Prescribed by: ERIKA GRIJALVA DO Clopidogrel (Clopidogrel) 75 Mg Tablet 75 MG PO DAILY Prescribed by: ERIKA GRIJALVA DO Estradiol (Estradiol) 2 Mg Tablet 2 MG PO QAM (Reported) Gabapentin (Gabapentin) 800 Mg Tablet 1,600 MG PO BID (Reported) EVENING AND AT HS Insulin Human Lispro (HumaLOG U100 Insulin Vial) 100 Unit/Ml Unit 0.9 UNITS SQ ASDIRECTED (Reported) INSULILN 22 UNITS/DAY BASAL RATE PER INSULIN PUMP. Insulin Lispro (HumaLOG U100 Insulin Cartridge Refill) 100 Unit/1 Ml Cartridge 2 UNIT SUBQ TIDWM (Reported) Methylphenidate (Methylphenidate) 10 Mg Tablet 10 MG PO DAILYWL (Reported) Methylphenidate ER (Concerta) 36 Mg Tab.er.24 36 MG PO QAM (Reported) Multivitamin (Multivitamins) 1 Each Capsule 1 EACH PO DAILY (Reported) Progesterone,Micronized (Progesterone) 100 Mg Capsule 200 MG PO QAM (Reported) Rosuvastatin Calcium (Rosuvastatin Calcium) 20 Mg Tablet 20 MG PO QAM (Reported ) Thyroid,Pork ([place] Thyroid) 60 Mg Tablet 60 MG PO EVERY OTHER DAY (Reported) Venlafaxine ER (Venlafaxine ER) 225 Mg Tab.er.24 225 MG PO QAM (Reported) As needed Acetaminophen (Acetaminophen) 325 Mg Tablet 650 MG PO Q6H PRN PRN For Pain ( Reported) Gabapentin (Gabapentin) 800 Mg Tablet 1,600 MG PO QAM PRN PRN NEUROPATHIC PAIN ( Reported) Ibuprofen (Ibuprofen) 600 Mg Tablet 600 MG PO QID PRN PRN For Pain (Reported) Miscellaneous Medications ([humalog insulin pump]) SUBQ (Reported) Additional med instructions Continue home medications. Followup Plan Follow-up plan Please follow up with your primary care physician in 1-2 weeks time. IF you do not currently have a primary care physician the [facility] residency clinic is a good option. Follow up with Dr. River with Endocrinology to help manage your Type 1 Diabetes. Discharge Diet: Heart Healthy, Diabetic Discharge Activity: No restrictions Patient Instructions If you have signs of syncope or pre-syncope, please seek medical help. You can call your primary care physician or call the Emergency medical services. Follow up with your primary care regarding the use of a industrial education instructor, ie.. Zio-patch or holter monitor. Follow-up Provider: Tito Knight MD Follow-up with PCP in: 2 weeks (1-2 weeks.) Provider: Jose River MD Follow-up in: 2 weeks (1-2 weeks.) Time spent > 35 mins. copies to: Tito Knight MD; Jose River MD; Javier Rivas MD, COREY P DO Feb 07, 2017 05:41
== END 2017-02-04 17:30 | disposition home or self-care (01) | DRG 312 ==
LOC: SED 15:26 → EDBD 15:26 → PCC 17:19 → OBSVTOIN 17:19
PROVIDERS: ADMIT Hospitalist; ATTEND Hospitalist
PROC: 4A02XFZ Measurement of Cardiac Rhythm, External Approach (ICD-10-PCS; principal; 2017-02-03)
PROC: 4A03XB1 Measurement of Arterial Pressure, Peripheral, External Approach (ICD-10-PCS; 2017-02-03)
DX: R55 Syncope and collapse (principal); E10.42 Type 1 diabetes mellitus with diabetic polyneuropathy; Z96.41 Presence of insulin pump (external) (internal); Z79.4 Long term (current) use of insulin; E03.9 Hypothyroidism, unspecified; I25.10 Atherosclerotic heart disease of native coronary artery without angina pectoris; Z95.5 Presence of coronary angioplasty implant and graft; E10.65 Type 1 diabetes mellitus with hyperglycemia; F32.9 Major depressive disorder, single episode, unspecified; I25.2 Old myocardial infarction; E10.59 Type 1 diabetes mellitus with other circulatory complications

== ENCOUNTER 2017-02-23 10:20 | Emergency (ER) | payer OTHER ==
[~2017-02-23] VITALS: Ht 170.2 cm; Wt 61.6 kg
[~2017-02-23 10:20] MED LIST changes: +ACET325T51 PO; +AMT25T PO; -ARIP10TA16 PO; -BIMA2.5D6 OD; -BUTA-238 PO; +IBUP-1827 PO; +INSU100C11 SUBQ; +METH-295 PO; +METH36TA4 PO; -METO25TA6 PO; +ROSU20TA27 PO; -TOPI50TA88 PO; -VERA240T97 PO; +[UNRECOGNIZED DRUG - OTHER] TOPICAL
[2017-02-23 10:25] VITALS: BP 119/87; PULSE 127; RESP 16; O2SAT 100
--- NOTE | 2017-02-23 10:51 | ED.REPORT ---
HPI-Abd Pain F 40 and Over Date of Service Feb 23, 2017 ED Provider: Dr. Talat Quinonez MD A 46 year old female with a history of type I diabetes mellitus on an insulin pump, previous DKA, previous VT s/p stent placement on Plavix, Franky's disease, CAD, frontal lobe syndrome and depression presents to the ED complaining of vomiting that began earlier this week. The patient reports that she has been relatively immobile for the past few weeks secondary to severe fatigue. Recent associated symptoms also include night sweats, dysphagia, decreased appetite, decreased fluid intake and a syncopal episode that occurred earlier this week. The patient attributes her recent symptoms to dehydration. She states that she has not drinking any fluids for the past two days. Patient also noticed a mass to the right side of neck that has been present for approx. 3 months. She denies any abdominal pain, chest pain, fever, chills, cough or SOB. Nursing Notes Stated Complaint: NAUSEA/VOMITING,SWOLLEN LYMPH NODE,DIAB TYPE 1 Chief Complaint: Female Abdominal Pain Nursing Notes Reviewed: Yes Allergies: Coded Allergies: Penicillins (Verified Allergy, Severe, ANAPHYLAXIS, 10/21/15) quetiapine (Verified Allergy, Unknown, 10/21/15) Uncoded Allergies: nicotine patch (Adverse Reaction, Intermediate, 03/26/13) Scheduled ([Testosterone Cr Comp]) 0.1 ML TOPICAL QAM DAB SMALL AMT TO WRISTS Amitriptyline (Amitriptyline) 25 Mg Tab 50-75 MG PO HS Aspirin (Aspirin) 81 Mg Tablet 81 MG PO DAILY Clopidogrel (Clopidogrel) 75 Mg Tablet 75 MG PO DAILY Estradiol (Estradiol) 2 Mg Tablet 2 MG PO QAM Gabapentin (Gabapentin) 800 Mg Tablet 1,600 MG PO BID EVENING AND AT HS Insulin Human Lispro (HumaLOG U100 Insulin Vial) 100 Unit/Ml Unit 0.9 UNITS SQ ASDIRECTED INSULILN 22 UNITS/DAY BASAL RATE PER INSULIN PUMP. Insulin Lispro (HumaLOG U100 Insulin Cartridge Refill) 100 Unit/1 Ml Cartridge 2 UNIT SUBQ TIDWM Methylphenidate (Methylphenidate) 10 Mg Tablet 10 MG PO DAILYWL Methylphenidate ER (Concerta) 36 Mg Tab.er.24 36 MG PO QAM Multivitamin (Multivitamins) 1 Each Capsule 1 EACH PO DAILY Progesterone,Micronized (Progesterone) 100 Mg Capsule 200 MG PO QAM Rosuvastatin Calcium (Rosuvastatin Calcium) 20 Mg Tablet 20 MG PO QAM Thyroid,Pork ([place] Thyroid) 60 Mg Tablet 60 MG PO EVERY OTHER DAY Venlafaxine ER (Venlafaxine ER) 225 Mg Tab.er.24 225 MG PO QAM Scheduled PRN Acetaminophen (Acetaminophen) 325 Mg Tablet 650 MG PO Q6H PRN PRN For Pain Gabapentin (Gabapentin) 800 Mg Tablet 1,600 MG PO QAM PRN PRN NEUROPATHIC PAIN Ibuprofen (Ibuprofen) 600 Mg Tablet 600 MG PO QID PRN PRN For Pain Ondansetron ODT (Zofran ODT) 4 Mg Tablet 4 MG PO Q4H PRN PRN For Nausea Miscellaneous Medications ([humalog insulin pump]) SUBQ General Time Seen by MD: 10:50 Chief Complaint Vomiting mild Hx Obtained From: Patient Arrived By: Walk-in Sudden in Onset?: No Onset Occurred: 3 days ago Symptom Duration: Since onset Progression since Onset: Unchanged Severity: Current: No pain currently Severity: Maximum: No pain Associated with: Reports: Vomiting, Denies: Chills, Fever Pertinent Negative: Pt denies other symptoms Recent Healthcare: No recent doctor visit, No recent hospitalization Risk Factors )( AAA Risk Stratification Risk factors reviewed Past Medical History Past Medical History Notes: Admit to [facility] for DKA 10/2015, + CAD/troponins -> Taken to label coder (complex anatomy - see cardiology notes, plan for possible intervention at [facility] possibly next month-not scheduled Past Medical History Gastroporesis Franky's disease Type 1 diabetes mellitus for 21+ years -peripheral neuropathy -History of DKA. History of alcohol abuse, quit four years ago. Hypothyroidism. LUANA plus BSO for painful endometriosis. History of difficulty emptying bladder, on Flomax Frontal lobe syndrome Sleep apnea PTSD Interstitial cystitis Adhesive capsulitis H. pylori infection Pancreatitis Reports: Coronary artery disease, Diabetes mellitus Reports: Depression, Migraines Past Surgical History Colonoscopy Tubal ligation Cholecystectomy Hysterectomy Caredaiac Cath - complex lesion involving LAD with significant collaterals Family History VT HTN Hyperlipidemia NO diabetes in family Reports: Cancer Smoking History Former Smoker Social History Alcohol abuse x25 years with 6 years of sobriety Alcohol Use: Denies alcohol use Drug Use: Denies drug use Other Social History: Local resident Ambulatory Status Independent Review of Systems + Night sweats + Dysphagia + Decreased appetite + Decreased fluid intake Constitutional: Reports: Fatigue, Denies: Chills, Fever Respiratory: Denies: Non-productive cough, Shortness of breath Cardiovascular: Denies: Chest pain GI: Reports: Vomiting, Denies: Abdominal pain Musculoskeletal: Reports: Neck pain (Neck lump) Complete sys rev & neg: except as marked. Physical Exam Vital Signs Vital Signs (First) Date Time Temp Pulse Resp B/P Pulse Ox O2 Delivery O2 Flow Rate FiO2 02/23/17 10:25 36.0 127 16 119/87 100 Room Air Initial VS: Reviewed Head / Eyes: Atraumatic, Normocephalic, PERRL Extremities: Vascular intact, Neuro intact, No swelling, No tenderness Skin: Warm, Dry, No cyanosis Neurologic: Alert, Oriented, Nonfocal Psychiatric: Mood/affect normal, Behavior normal, Normal thought content General/Constitutional: Awake, Alert, No acute distress Distress / Hydration: Positive: Dehydration mild Respiratory / Chest: Atraumatic, Breath sounds NL, Breath sounds = bilat, No respiratory distress Cardiovascular: Heart rate NL, Regular rhythm, Heart sounds NL Abdomen: Atraumatic, Soft, Non-tender Back: Atraumatic, Inspection NL Neck: Atraumatic, Supple Additional Notes: Moderate mass present right side of the patients neck Interpretation & Diagnostics Neck CT w/ oral contrast Read by radiology IMPRESSION: 1. No imaging explanation for difficulty swallowing. 2. 10 mm hypodense lesion within the inferior tip of the right parotid gland is of uncertain etiology, and may represent an enlarged intraparotid lymph node versus primary parotid gland neoplasm. Dictated by: Og Wolf M.D. on 02/23/2017 at 12:37 Lab Results Interpretation Result Diagram: 02/23/17 1109 02/23/17 1109 Test 02/23/17 11:09 White Blood Count 10.9th/mm3 (3.8-10.1) Red Blood Count 4.77mil/mm3 (3.90-5.20) Hemoglobin 15.2g/dL (12.0-15.6) Hematocrit 44.9% (35.0-46.0) Mean Corpuscular Volume 94.1fL (81-100) Mean Corpuscular Hemoglobin 31.9pg (27.0-35.0) Mean Corpuscular Hemoglobin Concent 33.9% (32.0-37.0) Red Cell Distribution Width 14.4% (12.3-15.4) Platelet Count 302bil/L (150-400) Neutrophils (%) (Auto) 76.2% (40-74) Lymphocytes (%) (Auto) 15.1% (14-46) Monocytes (%) (Auto) 6.8% (4-12) Eosinophils (%) (Auto) 1.3% (0-5) Basophils (%) (Auto) 0.4% (0-3) Sodium Level 137mEq/L (134-144) Potassium Level 4.1mEq/L (3.5-5.2) Chloride Level 100mEq/L (97-108) Carbon Dioxide Level 18mmol/L (18-29) Blood Urea Nitrogen 24mg/dL (6-24) Creatinine 0.72mg/dL (0.57-1.00) Estimat Glomerular Filtration Rate 124mL/min (>59) Glucose Level 251mg/dL (60-99) Lactic Acid Level 1.4mmol/L (0.4-2.0) Calcium Level 9.9mg/dL (8.5-10.1) Total Bilirubin 0.4mg/dL (0.0-1.2) Aspartate Amino Transf (AST/SGOT) 30U/L (0-50) Alanine Aminotransferase (ALT/SGPT) 23U/L (0-32) Alkaline Phosphatase 120U/L (25-150) Total Protein 7.6g/dL (6.4-8.4) Albumin 4.5g/dL (3.4-5.0) Ketones Small (Negative) ECG Interpretation ECG Interpretation: Sinus tachycardia Rate 115 bpm Supraventricular bigeminy Bilateral enlargement Time: 11:53 Interpreted by: ED physician X-Ray Chest Interpretation Chest Xray Interpretation: IMPRESSION: No acute cardiopulmonary disease. Small heart size may suggest anorexia. Dictated by: Og Wolf M.D. on 02/23/2017 at 11:32 Interpretation / Wet Read by: Interpret - Radiologist Re-Eval/Medical Decision Med Decision/Clinical Course Not in DKA. No evidence of airway obstruction. Patient is feeling better after IV fluids. Patient is tolerating oral intake. CT scan shows a mass of the parotid gland. Patient made aware of this and informed of this may be cancerous and that she needs very close outpatient follow-up. She understands and agrees. She is discharged with Zofran. Return and follow-up precautions given Re-Evaluation/Progress : Time of Eval: 13:22 Patient Status: Condition improved Re-Evaluation/Progress Note: Patient condition is re-evaluated. She is informed of her current results and the intended treatment plan. All of the patient's questions about her likely diagnosis and disposition are addressed. She understands and agrees with the plan. Counseled Regarding: Diagnosis, Lab results, Need for follow-up, When/why to return to ED Discharge & Departure Primary Impression: Dehydration Disposition: Home Discharge Condition All VS Reviewed: Yes Condition: Stable Patient Instructions: Dehydration (ED) Additional Instructions: Thank you for trusting us with your care this morning. Your emergency department evaluation today including examination, lab work, EKG and chest X-ray are reassuring that there is no dangerous cause for concern at this time and I believe your symptoms are likely due to dehydration. The CT of your neck did reveal a lesion on your parotid gland and this will require follow up and likely a biopsy. Please schedule a follow-up appointment with your primary care physician in the 1-2 days for a recheck. Continue taking your insulin. Please drink plenty of fluids and continue to eat. Take 1-2 Zofran every 8 hours for nausea. Please return to the emergency department for any new or worsening conditions including any fevers, chills, difficulty swallowing, persistent, nausea, vomiting, chest pain, shortness or breath, lightheadedness or weakness. Referrals: Tito Knight MD (PCP) Scribe Attestation Portions of this note were transcribed by Fern Concepcion. I, Dr. Talat Quinonez personally performed the history, physical exam and medical decision- making; I reviewed and confirmed the accuracy of the information in the transcribed note. copies to: Tito Knight MD, Timothy S DO Feb 23, 2017 10:51 FERN CONCEPCION Feb 23, 2017 11:17
[2017-02-23] MEDS ORDERED: Ondansetron 2 mg/mL 2 mL Inj ONE (11:12)
[2017-02-23 11:21] LABS: BASOPHILS % (AUTO) 0.4 % (0-3); EOSINOPHILS % (AUTO) 1.3 % (0-5); MONOCYTES % (AUTO) 6.8 % (4-12); Mean Corpuscular Hemoglobin 31.9 pg (27.0-35.0); Mean Corpuscular Volume 94.1 fL (81-100); NEUTROPHILS % (AUTO) 76.2 % (40-74); Platelet Count 302 bil/L (150-400)
[2017-02-23] MEDS: 0.9% Sodium Chloride 1,000 ML IV SCH ×2 (11:24→12:27)
--- NOTE | 2017-02-23 11:35 | DRSVH ---
PROCEDURE: X-RAY CHEST ONE VIEW, PORTABLE ([id number]) INDICATIONS: 46 year-old female with nausea and vomiting. TECHNIQUE: One view of the chest was acquired. COMPARISON: [facility], CR, XR CHEST 1VW (PORTABLE), 02/02/2017, 15:50. [facility], CR, XR CHEST 1VW (PORTABLE), 12/04/2015, 22:37. [facility], CR, XR CHEST 1VW (POR TABLE), 12/04/2015, 19:47. FINDINGS: Surgical changes and devices: None. Lungs and pleura: No pleural effusions or pneumothorax. Lungs are clear. Mediastinum: Mediastinal contours appear normal. Cardiac silhouette is small. Bones and chest wall: No suspicious bony lesions. Overlying soft tissues appear unremarkable. IMPRESSION: No acute cardiopulmonary disease. Small heart size may suggest anorexia. Dictated by: Og Wolf M.D. on 02/23/2017 at 11:32 Approved by: Og Wolf M.D. on 02/23/2017 at 11:33
--- NOTE | 2017-02-23 11:39 | ABG ---
DateTimeAnalyzed 11:30:15 -_ pH ____7.422 - 7.350 7.450 pCO2 ___31.0__ -mmHg 35.0 45.0 pO2 ___59.5__ -mmHg 69.0 116 HCO3- ___20.1__ -mmol/L 22.0 26.0 ABE ___-3.7__ -mmol/L -2.0 2.0 tHb ___14.7__ -g/dL 12.0 18.0 O2Hb ___86.6__ -% COHb ____4.6__ -% 0.0 1.5 MetHb ____0.0__ -% 0.4 1.5 sO2 ___90.5__ -% FIO2 ___21.0__ -% Drawn By RN - Date/Time Notified____ 11:39:00 -_ Notified Whom __oKELLEY - K+ ____3.8__ -mmol/L 3.5 5.0 tO2 ___17.9__ -Vol%
--- NOTE | 2017-02-23 11:40 | ABG ---
DateTimeAnalyzed 11:30:15 -_ pH ____7.422 - 7.320 7.420 pCO2 ___31.0__ -mmHg 41.0 51.0 pO2 ___59.5__ -mmHg 24.0 40.0 HCO3- ___20.1__ -mmol/L 22.0 26.0 ABE ___-3.7__ -mmol/L -2.0 2.0 tHb ___14.7__ -g/dL 12.0 18.0 O2Hb ___86.6__ -% COHb ____4.6__ -% 0.0 1.5 MetHb ____0.0__ -% 0.4 1.5 sO2 ___90.5__ -% FIO2 ___21.0__ -% Drawn By RN - Date/Time Notified____ 11:39:00 -_ Notified Whom __oKELLEY - K+ ____3.8__ -mmol/L 3.5 5.0 tO2 ___17.9__ -Vol%
[2017-02-23 12:29] VITALS: BP 114/59; PULSE 97; RESP 18; O2SAT 98
--- NOTE | 2017-02-23 12:48 | DRSVH ---
PROCEDURE: CT NECK SOFT TISSUES WITH CONTRAST ([id number]) INDICATIONS: 46 year-old female with weight loss and difficulty swallowing. TECHNIQUE: After the administration of intravenous contrast, 3.0 mm axial sections acquired from the sella to th e aortic arch. Additional oblique axial 3.0 mm sections acquired through the pharynx. 3 mm thick co jose reformats were generated. For radiation dose reduction, the following was used: automated exp osure control. COMPARISON: None. FINDINGS: Image quality: Excellent. Lymph nodes: No enlarged lymph nodes seen throughout the neck. Vessels: Visualized vasculature appears patent. Neck spaces: The oropharynx, nasopharynx, and pharynx demonstrate no mucosal lesions. The vocal cor ds, false vocal cords, pyriform sinuses, epiglottis, vallecula, and tongue base all appear normal. E xtramucosal spaces appear unremarkable. Glands: The parotid and submandibular glands appear normal in overall size. On axial image 25, 10 x 8 mm hypodense lesion is situated at the inferior tip of the right parotid gland. Thyroid gland is n ormal in size, with 2 mm right thyroid hypodense nodule of doubtful clinical significance. Miscellaneous: Visualized brain and orbits appear normal. Lung apices appear clear, with early cent rilobular emphysema. Superficial soft tissues appear normal. Bones: No suspicious bony lesions. Visualized sinuses and mastoids appear unremarkable. IMPRESSION: 1. No imaging explanation for difficulty swallowing. 2. 10 mm hypodense lesion within the inferior tip of the right parotid gland is of uncertain etiology , and may represent an enlarged intraparotid lymph node versus primary parotid gland neoplasm. Dictated by: Og Wolf M.D. on 02/23/2017 at 12:37 Approved by: Og Wolf M.D. on 02/23/2017 at 12:46
[2017-02-23] MEDS ORDERED: ONDA4TAB9 PO (13:49)
[2017-02-23 14:17] VITALS: BP 126/69; PULSE 93; RESP 15; O2SAT 97
== END 2017-02-23 14:19 | disposition home or self-care (01) ==
LOC: SED 10:20
DX: E86.0 Dehydration (principal); E10.43 Type 1 diabetes mellitus with diabetic autonomic (poly)neuropathy; E03.9 Hypothyroidism, unspecified; I25.10 Atherosclerotic heart disease of native coronary artery without angina pectoris; F43.10 Post-traumatic stress disorder, unspecified; Z87.891 Personal history of nicotine dependence; Z79.82 Long term (current) use of aspirin; Z79.4 Long term (current) use of insulin; Z88.0 Allergy status to penicillin; Z88.8 Allergy status to other drugs, medicaments and biological substances
CPT/HCPCS: 36415; 70491; 71010; 80053; 82009; 82375; 82803; 82948; 83605; 85025; 93005; 96374; 99285; J2405; J7030; Q9967

== ENCOUNTER 2017-02-28 13:00 | Inpatient (IN) | payer OTHER ==
[~2017-02-28] VITALS: Ht 170.2 cm; Wt 64.0 kg
[~2017-02-28 13:00] MED LIST changes: +ONDA4TAB9 PO
--- NOTE | 2017-02-28 13:07 | ED.REPORT ---
HPI-General Illness Date of Service Feb 28, 2017 ED Provider: Davion Davison MD Pt is a 46 year old female with a hx of DM I, DKA, CAD, LAD stent on Plavix presenting to the ED via EMS complaining of nausea and vomiting. Associated symptoms include a dry mouth, mild chest pain, and malaise. Denies SOB, fever, chills, cough, focal weakness, or numbness. She had a recent LAD stent placement , which they are "planning on removing because the stent was recalled". She has an insulin pump which she states is working, but medics report her glucose in the field was too high to read. Nursing Notes Stated Complaint: N/V CHEST PAIN Chief Complaint: Vomiting Nursing Notes Reviewed: Yes Allergies: Coded Allergies: Penicillins (Verified Allergy, Severe, ANAPHYLAXIS, 10/21/15) quetiapine (Verified Allergy, Unknown, 10/21/15) Uncoded Allergies: nicotine patch (Adverse Reaction, Intermediate, 03/26/13) Scheduled ([Testosterone Cr Comp]) 0.1 ML TOPICAL QAM DAB SMALL AMT TO WRISTS Amitriptyline (Amitriptyline) 25 Mg Tab 50 MG PO HS Aspirin (Aspirin) 81 Mg Tablet 81 MG PO DAILY Atorvastatin Calcium (Atorvastatin Calcium) 20 Mg Tablet 20 MG PO DAILY Clopidogrel (Clopidogrel) 75 Mg Tablet 75 MG PO DAILY Estradiol (Estradiol) 2 Mg Tablet 2 MG PO QAM Gabapentin (Gabapentin) 800 Mg Tablet 1,600 MG PO TID Insulin Human Lispro (HumaLOG U100 Insulin Vial) 100 Unit/Ml Unit 0.9 UNITS SQ ASDIRECTED INSULILN 22 UNITS/DAY BASAL RATE PER INSULIN PUMP. Methylphenidate ER (Concerta) 36 Mg Tab.er.24 36 MG PO QAM Multivitamin (Multivitamins) 1 Each Capsule 1 EACH PO DAILY Progesterone,Micronized (Progesterone) 100 Mg Capsule 200 MG PO QAM Thyroid,Pork (Blanco Thyroid) 60 Mg Tablet 30 MG PO DAILY Venlafaxine ER (Venlafaxine ER) 225 Mg Tab.er.24 225 MG PO QAM Scheduled PRN Acetaminophen (Acetaminophen) 325 Mg Tablet 650 MG PO Q6H PRN PRN For Pain Ibuprofen (Ibuprofen) 600 Mg Tablet 600 MG PO QID PRN PRN For Pain General Time Seen by MD: 13:06 Chief Complaint Vomiting Hx Obtained From: Patient, EMS Arrived By: Ambulance Sudden in Onset?: Yes Onset Occurred: Just prior to arrival Symptom Duration: Since onset Location: : Chest Quality: Painful Severity: Current: Mild Severity: Maximum: Moderate Recent Healthcare: No recent hospitalization, Recent doctor visit Similar Sx Previous: Yes Past Medical History Past Medical History Notes: Admit to [facility] for DKA 10/2015, + CAD/troponins -> Taken to [facility] (complex anatomy - see cardiology notes, plan for possible intervention at [facility] possibly next month-not scheduled Past Medical History Gastroporesis Franky's disease Type 1 diabetes mellitus for 21+ years -peripheral neuropathy -History of DKA. History of alcohol abuse, quit four years ago. Hypothyroidism. LUANA plus BSO for painful endometriosis. History of difficulty emptying bladder, on Flomax Frontal lobe syndrome Sleep apnea PTSD Interstitial cystitis Adhesive capsulitis H. pylori infection Pancreatitis Reports: Coronary artery disease, Diabetes mellitus Reports: Depression, Migraines Past Surgical History Colonoscopy Tubal ligation Cholecystectomy Hysterectomy Caredaiac Cath - complex lesion involving LAD with significant collaterals Family History MA HTN Hyperlipidemia NO diabetes in family Reports: Cancer Smoking History Former Smoker Social History Alcohol abuse x25 years with 6 years of sobriety Alcohol Use: Denies alcohol use Drug Use: Denies drug use Other Social History: Local resident Ambulatory Status Independent Review of Systems Full Review of Systems Constitutional: Reports: Malaise, Denies: Chills, Fever Respiratory: Denies: Non-productive cough, Shortness of breath Cardiovascular: Reports: Chest pain GI: Reports: Nausea, Vomiting Neurologic: Denies: Focal weakness, Numbness Complete sys rev & neg: except as marked. Physical Exam Vital Signs Vital Signs Date Time Temp Pulse Resp B/P Pulse Ox O2 Delivery O2 Flow Rate FiO2 02/28/17 13:24 36.9 115 23 116/38 98 Room Air Initial VS: Reviewed Head / Eyes: Atraumatic, Normocephalic, PERRL Neck: Supple, Non-tender, Full range of motion Respiratory: Breath sounds normal, Clear to auscultation, No respiratory distress Cardiovascular: Regular rate & rhythm, Heart sounds normal, Intact distal pulses Abdomen / GI: Soft, Non-tender, No guarding, No rebound, No distention Skin: Warm, Dry, No cyanosis Psychiatric: Mood/affect normal, Behavior normal, Normal thought content General/Constitutional: Awake, Alert ENT: Atraumatic, Airway patent, Pharynx NL Very dry mucus membranes Upper Extremities Upper Extremity / MS: Atraumatic, Inspection NL, Full range of motion, No swelling, Non-tender, No erythema, No deformity, Neurologic intact, Vascular intact Insulin pump about right bicep region Neurologic: Oriented X3, Speech NL, No motor deficits, No sensory deficits, CN II - XII intact Interpretation & Diagnostics Lab Results Interpretation Result Diagram: 02/28/17 1317 02/28/17 1317 Test 02/28/17 13:17 White Blood Count 25.5th/mm3 (3.8-10.1) Red Blood Count 4.39mil/mm3 (3.90-5.20) Hemoglobin 14.0g/dL (12.0-15.6) Hematocrit 42.2% (35.0-46.0) Mean Corpuscular Volume 96.1fL (81-100) Mean Corpuscular Hemoglobin 31.9pg (27.0-35.0) Mean Corpuscular Hemoglobin Concent 33.2% (32.0-37.0) Red Cell Distribution Width 13.1% (12.3-15.4) Platelet Count 334bil/L (150-400) Neutrophils (%) (Auto) 88.8% (40-74) Lymphocytes (%) (Auto) 5.1% (14-46) Monocytes (%) (Auto) 5.2% (4-12) Eosinophils (%) (Auto) 0% (0-5) Basophils (%) (Auto) 0.2% (0-3) Prothrombin Time 9.6sec (8.1-12.5) Prothromb Time International Ratio 0.90ratio Sodium Level 132mEq/L (134-144) Potassium Level 6.6mEq/L (3.5-5.2) Chloride Level 85mEq/L (97-108) Carbon Dioxide Level 6mmol/L (18-29) Blood Urea Nitrogen 44mg/dL (6-24) Creatinine 1.61mg/dL (0.57-1.00) Estimat Glomerular Filtration Rate 49mL/min (>59) Glucose Level 712mg/dL (60-99) Lactic Acid Level 3.7mmol/L (0.4-2.0) Calcium Level 10.9mg/dL (8.5-10.1) Magnesium Level 2.5mg/dL (1.6-2.6) Total Bilirubin 0.3mg/dL (0.0-1.2) Aspartate Amino Transf (AST/SGOT) 35U/L (0-50) Alanine Aminotransferase (ALT/SGPT) 34U/L (0-32) Alkaline Phosphatase 158U/L (25-150) Troponin T < 0.010ug/L (0.0-0.011) Total Protein 8.1g/dL (6.4-8.4) Albumin 4.8g/dL (3.4-5.0) Ketones Small (Negative) ECG Interpretation ECG Interpretation: Sinus tachycardia at 115. Normal axis. Normal intervals. No ST elevations. No acute T wave abnormalities. When compared with 02/02/17 pt is now more tachycardic. Time: 13:20 Interpreted by: ED physician X-Ray Chest Interpretation Chest Xray Interpretation: IMPRESSION: No acute pulmonary process. Dictated by: Devi Kwon M.D. on 02/28/2017 at 13:40 View: Portable, 1 view Interpretation / Wet Read by: Interpret - Radiologist Re-Eval/Medical Decision Med Decision/Clinical Course Pt is a 46 year old female with a hx of DM I, DKA, CAD, LAD stent on Plavix presenting to the ED via EMS complaining of nausea and vomiting. Associated symptoms include a dry mouth, mild chest pain, and malaise. Denies SOB, fever, chills, cough, focal weakness, or numbness. She had a recent LAD stent placement , which they are "planning on removing because the stent was recalled". She has an insulin pump which she states is working, but medics report her glucose in the field was too high to read. Here in the emergency department patient appears profoundly dehydrated though is answering questions appropriately and mentating normally. Medications administered: 324 mg aspirin, IV fluids, PRN morphine for pain. LABS: Leukocytosis 25.5 Stable hematocrit BUN 44 Creatinine 1.61 Glucose 712 Potassium 6.6 Lactic acid 3.7 Na 132 EKG shows: Sinus tachycardia at 115. Normal axis. Normal intervals. No ST elevations. No acute T wave abnormalities but slightly peaked in appearance. When compared with 02/02/17 pt is now more tachycardic. Chest x ray: No acute pulmonary process. Patient is profoundly hyperglycemic, dehydrated and hypokalemic with acute kidney injury. Overall presentation seems most consistent with diabetic ketoacidosis. While her potassium is quite high it is likely that she is overall total body potassium depleted. I am aggressively treating with IV fluids and the patient has been started on insulin drip. We will closely monitor potassium and keep her on telemetry. Examination of her abdomen reveals no findings suggestive of an acute surgical process. She does have acute kidney injury which is likely due to her profound dehydration and we will continue to monitor her renal function. The patient will require admission to the intensive care unit on insulin drip for further management of her diabetic ketoacidosis. Patient was discussed with maintenance trainer and transferred in stable condition. Time of Eval: 15:19 Patient Status: Condition improved Re-Evaluation/Progress Note: Discussed plan for admission. Pt understands and agrees. Consultation : Referral / Consult Name: Jak Avitia MD Consulted With: Hospitalist Call Returned at: 15:18 Operations Expert: Will see patient, Agrees with plan, Accepts admit Counseled Regarding: Diagnosis, Lab results, Need for admission Discharge & Departure Primary Impression: DKA (diabetic ketoacidosis) Diabetes mellitus type: type 1 Diabetes mellitus complication detail: without coma Qualified Code: E10.10 - Type 1 diabetes mellitus with ketoacidosis without coma Additional Impressions: Severe dehydration Hyperkalemia Type I diabetes mellitus Diabetes mellitus complication status: with unspecified complications Qualified Code: E10.8 - Type 1 diabetes mellitus with unspecified complications Leukocytosis Leukocytosis type: unspecified Qualified Code: D72.829 - Elevated white blood cell count, unspecified Acute renal failure Acute renal failure type: unspecified Qualified Code: N17.9 - Acute kidney failure, unspecified Lactic acidosis Disposition: ADMITTED TO HOSPITAL Discharge Condition All VS Reviewed: Yes Condition: Improved Referrals: Tito Knight MD (PCP) Crit Care Except Billable Proc Time Spent: 105-134 minutes Services Performed: Patient management by me, Time spent at bedside, Reviewing test results, Reviewing imaging, Discussing patient care, Documentation in record, Time with fam/surrogate Scribe Attestation Portions of this note were transcribed by Lacey Diaz. I, Dr. Davison personally performed the history, physical exam and medical decision-making; I reviewed and confirmed the accuracy of the information in the transcribed note. Signed by: Julius Pressley, 02/28/2017. copies to: Tito Knight MD,Davion Trejo MD Feb 28, 2017 13:07 LACEY DIAZ Feb 28, 2017 13:17
[2017-02-28] MEDS ORDERED: 0.9% Sodium Chloride 1,000 ML IV ONE ×4 (13:12→16:15)
[2017-02-28] MEDS ORDERED: Ondansetron 2 mg/mL 2 mL Inj IVPUSH ONE (13:15)
[2017-02-28 13:24] VITALS: BP 116/38; PULSE 115; RESP 23; O2SAT 98
--- NOTE | 2017-02-28 13:42 | DRSVH ---
PROCEDURE: X-RAY CHEST ONE VIEW, PORTABLE ([id number]) INDICATIONS: cp TECHNIQUE: One view of the chest was acquired. COMPARISON: [facility], CR, XR CHEST 1VW (PORTABLE), 02/23/2017, 11:12. FINDINGS: Surgical changes and devices: None. Lungs and pleura: No pleural effusions or pneumothorax. Lungs are clear. Mediastinum: Mediastinal contours appear normal. Heart size is normal. Bones and chest wall: No suspicious bony lesions. Overlying soft tissues appear unremarkable. IMPRESSION: No acute pulmonary process. Dictated by: Devi Kwon M.D. on 02/28/2017 at 13:40 Approved by: Devi Kwon M.D. on 02/28/2017 at 13:40
[2017-02-28 13:53] LABS: BASOPHILS % (AUTO) 0.2 % (0-3); EOSINOPHILS % (AUTO) 0 % (0-5)
[2017-02-28 13:58] LABS: MONOCYTES % (AUTO) 5.2 % (4-12); Mean Corpuscular Hemoglobin 31.9 pg (27.0-35.0); Mean Corpuscular Volume 96.1 fL (81-100); NEUTROPHILS % (AUTO) 88.8 % (40-74); Platelet Count 334 bil/L (150-400)
[2017-02-28 14:10] LABS: INR 0.9 ratio
[2017-02-28 14:26] LABS: TROPONIN T < 0.010 ug/L (0.0-0.011)
[2017-02-28 14:39] LABS: Magnesium 2.5 mg/dL (1.6-2.6)
[2017-02-28] MEDS ORDERED: Insulin Human REGular Inj 100 UNIT in 0.9% Sodium Chloride-Pha MIX 100 ML IV SCH (14:43)
[2017-02-28] MEDS ORDERED: ATOR20TA65 PO (14:54)
[2017-02-28] MEDS ORDERED: Insulin Human REGular-Omnicell 100 Unit/mL IV ONE (15:55)
[2017-02-28] MEDS ORDERED: Polyethylene Glycol (PEG) 17 Gm Powder PO PRN (15:55)
[2017-02-28] MEDS ORDERED: Alum-Mag Hydrox-Simeth 30 mL Suspension PO PRN (15:55)
[2017-02-28 15:57] VITALS: BP 135/34; PULSE 118; RESP 17; O2SAT 100
[2017-02-28 17:00] VITALS: BP 122/70; PULSE 115; RESP 20; O2SAT 100
[2017-02-28] MEDS: Insulin Human REGular 100 Units/100 mL NS IV SCH ×2 (17:30)
[2017-02-28] MEDS ORDERED: D5W1/2NS 1,000 mL IV PRN (17:30)
[2017-02-28] MEDS ORDERED: Dextrose 10% 250 ML IV PRN (17:30)
[2017-02-28] MEDS ORDERED: Insulin Human REGular 300 Unit/3 mL Inj IV PRN (17:30)
--- NOTE | 2017-02-28 18:30 | PCM.HPMED ---
Subjective Date of Service Feb 28, 2017 Primary Provider: Admitting Physician: Jarocho Odonnell MD Primary Care Physician: Tito Knight MD Attending Physician: Jarocho Odonnell MD Chief Complaint: Nausea/Vomiting History of Present Illness: 46-year-old female with a history of cardiac arrest 2-3 years ago with minor brain damage consisting of short and long-term memory impairment, type I diabetes complicated by peripheral neuropathy and gastroparesis, myocardial infarction with stenting in July 2015, and psychiatric conditions including PTSD, depression, and frontal lobe syndrome, who presents to emergency department from acute care due to ongoing nausea and vomiting of one week duration with an acute increase over the last 24 hours. Patient states that one week ago she started to become anorexic and had nausea and vomiting that restricted her oral intake. Patient states that she has not had any fevers, chills, diarrhea or constipation. Denies cough, headache, chest pain or shortness of breath. Patient does state that she has been experiencing weight loss and night sweats as well as an increase growth in the subcutaneous tissues underneath the angle of the right mandible. She states that she has been compliant with her insulin and denies not following a diabetic diet. Patient denies polyuria In the emergency room the patient was noted to have an anion gap of 41, elevated lactate, leukocytosis, and a blood sugar greater than 700. Review of Systems: Complete review of systems performed; pertinent positives and negatives per history of present illness, all other systems reviewed and are negative Allergies Coded Allergies: Penicillins (Verified Allergy, Severe, ANAPHYLAXIS, 10/21/15) quetiapine (Verified Allergy, Unknown, 10/21/15) Uncoded Allergies: nicotine patch (Adverse Reaction, Intermediate, 03/26/13) Home Medications Aripiprazole (Aripiprazole) 10 Mg Tablet 10 MG PO DAILY Aspirin (Aspirin) 81 Mg Tablet 81 MG PO DAILY Bimatoprost (Bimatoprost) 0.03 % Drops 1 DROP OD q4hrs started 10/19/15 Clopidogrel (Clopidogrel) 75 Mg Tablet 75 MG PO DAILY Estradiol (Estradiol) 2 Mg Tablet 2 MG PO DAILY Gabapentin (Gabapentin) 800 Mg Tablet 1,600 MG PO TID Insulin Human Lispro (HumaLOG U100 Insulin Vial) 100 Unit/Ml Unit 0 SQ ASDIRECTED Metoprolol Tartrate (Metoprolol Tartrate) 25 Mg Tablet 12.5 MG PO BID Multivitamin (Multivitamins) 1 Each Capsule 1 EACH PO DAILY Progesterone,Micronized (Progesterone) 100 Mg Capsule 200 MG PO DAILY Thyroid,Pork (Dwarf Thyroid) 60 Mg Tablet 60 MG PO DAILY Topiramate (Topiramate) 50 Mg Tablet 50 MG PO BID Venlafaxine ER (Venlafaxine ER) 225 Mg Tab.er.24 225 MG PO DAILY Verapamil ER (Verapamil ER) 240 Mg Tber 240 MG PO BID Butalbital/Acetamin/Caff 50-300-40 mg (Butalbital/Acetamin/Caff 50-300-40 mg) 1 Each Tablet 1-2 TABLET PO TID PRN PRN For Headache PMH Cardiac arrest second to hypoglycemia with residual neurological deficits of memory Gastroporesis Franky's disease Type 1 diabetes mellitus for 21+ years with peripheral neuropathy History of alcohol abuse, quit four years ago. AR in July 2015 LUANA plus BSO for painful endometriosis. History of difficulty emptying bladder, on Flomax Frontal lobe syndrome Sleep apnea PTSD Interstitial cystitis Depression Migraines Surgical History Colonoscopy Tubal ligation Cholecystectomy Hysterectomy Caredaiac Cath - complex lesion involving LAD with significant collaterals; stented Family History Myocardial infarction 07/2015S/P stenting HTN Hyperlipidemia NO diabetes in family Cancer Social History Hx Alcohol Use: No (sober for last 6 months) Hx Substance Use: No Hx Tobacco Use: Yes (USES E-CIGARETTE. Additionally, h/o tobacco - 30 pyh, but quit 6 mo ago) Smoking Status: Former Smoker Living Arrangement: with Family Exam Vital Signs Vital Sign - Last Date Time Temp Pulse Resp B/P Pulse Ox O2 Delivery O2 Flow Rate FiO2 02/28/17 15:57 118 17 135/34 100 Room Air 02/28/17 13:24 36.9 Exam General: Pleasant age-appropriate female, resting comfortably HEENT: PERRLA, EOMI, nonicteric, membranes dry; growth noted in the subcutaneous tissue underneath the angle of her mandible on the right side. This was previously seen at the end of January but has grown substantially since that time and appears fixed in the superior-inferior direction. Lymph: No lymphadenopathy Cardio: Tachycardic and regular rhythm no murmurs rubs or gallops Respiratory: CTA bilaterally, no wheezes, no crackles Abdomen: Soft, positive bowel sounds, nontender, nondistended Extremities: No edema, 5/5 strength, sensation intact Psych: Appropriate mood and affect Neuro: CN II through XII grossly intact, sensation intact throughout Skin: No rash Lab and Diagnostics Result Diagram: 02/28/17 1317 02/28/17 1317 X-Rays, CTs and MRIs Chest x-ray IMPRESSION: No acute pulmonary process. Dictated by: Devi Kwon M.D. on 02/28/2017 at 13:40 Assessment & Plan 46-year-old female with a complicated medical history presents with 1 week of nausea and vomiting that acutely worsened last night. Workup in the emergency department on the floor indicates DKA with an anion gap of 41 with small amount of ketones in the serum. Patient also has a large subcutaneous growth on the right cervical region suspicious for malignancy. DKA with type I diabetes with gastroparesis and neuropathy; POA; ongoing -Patient presents with a glucose over 700, and small amount of ketones in the serum, with an anion gap of 41 -Patient is a type I diabetic usually well controlled and this was likely set off due to her persistent nausea and vomiting -Patient states she has been compliant with her medication (she is on a insulin pump) although she has not been eating -DKA protocol -Patient appeared dehydrated and was resuscitated with 4 L normal saline -Maintenance at 100 mL/hour -Trend lactic acid -Urine and serum osmolality -We will restart patient on Lantus 12 units prior to stopping insulin infusion -Lipase -Every 4hr BMP Acute leukocytosis; POA; ongoing -Patient presents with white count of 25, likely due to stress reaction but infection not ruled out -Blood cultures ordered; will hold abx for now -Procalcitonin is elevated but patient does not appear toxic and does not describe overall infectious history -Monitor and repeat labs in the a.m. and after fluid resuscitation Large subcutaneous growth on the right cervical region; POA; ongoing -Admitted this patient to half weeks ago this growth appear to be a lymph node -It has grown considerably since this time and patient reports weight loss of 15 pounds and night sweats; patient also has some dysphagia although I suspect this is more due to her diabetes -CT shows that is in the parotid gland, but is unable to determine whether neoplasm or cyst -Ultrasound ordered -Consider FNA prior to discharge due to concern for head and neck cancer Elevated alkaline phosphatase; POA; ongoing -Patient said more than 1 week of nausea and vomiting -Labs not wholly indicated biliary cause but will repeat CMP in a.m. -If persistent may be worth ultrasound of the right upper quadrant -Lipase History of AR with stent-atorvastatin, clopidogrel, and aspirin Hypothyroid-continue home Dwarf Thyroid Frontal lobe syndrome-stable Sleep apnea-continue use home O2 Depression-venlafaxine Migraines-amitriptyline Disposition: Patient is being admitted to inpatient status with expected length of stay greater than two midnights due to to severity of presentation, duration of treatment, and risks of adverse events disposition Full code Pain Evaluation: Adequate Pain Control VTE Prophylaxis: Sub-Q Heparin (Unfractionated) Resuscitation Status: CPR: Attempt Resuscitation Time spent 60 minutes Attending Statement The patient was seen and examined together with on February 28 and I agree with the history, exam findings, and plan as outlined in the note above. I did participate in all aspects of the services provided today, including documentation and the plan of care. The patient will be treated for DKA with IV fluids and the DKA protocol with insulin drip. In addition she has a firm right parotid mass versus node. Ultrasound will be obtained of this. Cuauhtemoc Clark DO Feb 28, 2017 18:30 Jarocho Odonnell MD Mar 01, 2017 15:51
[2017-02-28] MEDS: 0.9% Sodium Chloride 1,000 ML IV SCH (18:52)
[2017-02-28 19:49] VITALS: BP 135/72; PULSE 103; RESP 15; O2SAT 100
--- NOTE | 2017-02-28 19:53 | NUR ---
Rec'd to room 2015 from ER at 1700. Insulin gtt infusing, blood sugar 535 at 1705 and 450 at 1820, Dr Clark content to continue gtt without bolus due to steady decline in blood glucoses. Pt reports no urinary output since this morning. Mild transient nausea and pain r/t reddened nodule/mass on right side of neck. Ultrasound done at change of shift. Admission process explained. CPap here from home, cell phone and battery recharger. Plans to sent multidose/daily med container and debit card home with children tomorrow. Addendum: 03/01/17 at 0804 by WOOD MARK RN Shaking chills at about 1800, temp 36.5, warm blankets applied for comfort. Pt reports weight loff of approximately 15 pounds over the last month and a half, night sweats and new difficulty swallowing pills.
[2017-02-28] MEDS ORDERED: Promethazine Inj 12.5 MG in Dextrose 5%-Pha MIX 50 ML IV PRN (19:55)
[2017-02-28] MEDS: Heparin 5,000 Unit/mL Inj SUBQ SCH (20:00)
[2017-02-28] MEDS: Venlafaxine XR 75 mg ER24 Capsule PO SCH (20:01)
--- NOTE | 2017-02-28 20:35 | DRSVH ---
PROCEDURE: US SOFT TISSUE OF HEAD OR NECK SONOGRAM INDICATIONS: 46 year-old female with right neck palpable lump. TECHNIQUE: Real-time scanning was performed of the neck region of interest, with image documentation. COMPARISON: None. FINDINGS: At the site of clinical concern, a heterogeneous hypoechoic lesion deep to the sternocleido mastoid muscle measures 3.1 x 0.8 x 1.5 cm. Color Doppler interrogation demonstrates patchy internal vascular flow. IMPRESSION: 3.1 x 1.5 x 0.8 cm heterogeneous mass lesion deep to the right sternocleidomastoid muscle , possibly a significantly enlarged lymph node. Recommend more accurate characterization with contras t enhanced neck CT. Dictated by: Og Wolf M.D. on 02/28/2017 at 20:31 Approved by: Og Wolf M.D. on 02/28/2017 at 20:33
[2017-02-28 23:01] VITALS: BP 144/71; PULSE 103; RESP 22; O2SAT 99
[2017-03-01] MEDS: 0.9% Sodium Chloride 1,000 ML IV SCH ×2 (02:45→10:56)
[2017-03-01 03:09] VITALS: BP 113/55; PULSE 100; RESP 18; O2SAT 98
[2017-03-01] MEDS: Heparin 5,000 Unit/mL Inj SUBQ SCH ×3 (03:17→18:02)
[2017-03-01 03:44] LABS: BASOPHILS % (AUTO) 0.1 % (0-3); EOSINOPHILS % (AUTO) 0 % (0-5); Mean Corpuscular Hemoglobin 32.3 pg (27.0-35.0); Mean Corpuscular Volume 90.3 fL (81-100); NEUTROPHILS % (AUTO) 77.4 % (40-74); Platelet Count 260 bil/L (150-400)
[2017-03-01 04:11] LABS: Magnesium 1.9 mg/dL (1.6-2.6); Phosphorus 1.9 mg/dL (2.5-4.9)
[2017-03-01] MEDS: Insulin Human REGular 100 Units/100 mL NS IV SCH ×2 (06:05)
--- NOTE | 2017-03-01 06:35 | NUR ---
DKA BG 133, anion gap 15 on AM labs. Patient remains on DKA protocol, NPO. Denies n/v over shift. Tolerates PO pills without difficulty. NS infusing at 100ml/hr for maintenance fluid.
[2017-03-01 07:45] VITALS: BP 122/62; PULSE 94; RESP 12; O2SAT 98
[2017-03-01] MEDS: METHYLPHENIDATE 36 MG PO SCH (08:30)
[2017-03-01] MEDS: Venlafaxine XR 75 mg ER24 Capsule PO SCH (08:46)
[2017-03-01] MEDS ORDERED: Potassium Phos (mEq) Inj 40 MEQ in Dextrose 5% 500 ML IV ONE (09:25)
--- NOTE | 2017-03-01 10:34 | PCM.PNMED ---
Subjective Date of Service Mar 01, 2017 Subjective She is feeling better today. She denies any nausea but still feels a little thirsty. This is however improved. She feels less weak. No nausea. She did have a poor night's sleep. No diarrhea. No other overnight events noted. Exam Vital Signs Vital Sign - Last Date Time Temp Pulse Resp B/P Pulse Ox O2 Delivery O2 Flow Rate FiO2 03/01/17 07:45 36.9 94 12 122/62 98 Room Air Intake and Output 02/28/17 02/28/17 03/01/17 Cumulative From/Thru 14:59 22:59 06:59 02/28/17 13:18 - 03/01/17 06:12 Intake Total 999 ml 1000 ml 1968 ml 3967 ml Output Total 1700 ml 1700 ml Balance 999 ml 1000 ml 268 ml 2267 ml Intake IV Total 999 ml 1000 ml 1968 ml 3967 ml Output Urine Total 1700 ml 1700 ml Exam Alert and oriented -3, no distress. Fluent speech Anicteric sclera. Lungs are clear with normal rate and effort Heart is regular without murmur gallop or rub Abdomen soft nontender, flat Extremities are free of edema. Skin is free of rash or lesions. IVs and Medications Medications Reviewed: Medications were reviewed in detail Lab and Diagnostics Result Diagram: 03/01/17 0300 03/01/17 0300 X-Rays, CTs and MRIs Chest x-ray IMPRESSION: No acute pulmonary process. Dictated by: Devi Kwon M.D. on 02/28/2017 at 13:40 Assessment & Plan 46-year-old female with a complicated medical history presents with 1 week of nausea and vomiting that acutely worsened last night. Workup in the emergency department on the floor indicates DKA with an anion gap of 41 with small amount of ketones in the serum. Patient also has a large subcutaneous growth on the right cervical region suspicious for malignancy. DKA with type I diabetes with gastroparesis and neuropathy; POA; improving -Patient presents with a glucose over 700, and small amount of ketones in the serum, with an anion gap of 41 -Patient is a type I diabetic usually well controlled and this was likely set off due to her persistent nausea and vomiting -Patient states she has been compliant with her medication (she is on a insulin pump) although she has not been eating -DKA protocol Repeat ketones are small today. Her gap is closing. We will plan on stopping her insulin drip with excellent wall hours and converted to subcutaneous insulin. Acute leukocytosis; POA; improving. -Patient presents with white count of 25, likely due to stress reaction but infection not ruled out -Blood cultures ordered; will hold abx for now -Procalcitonin is elevated but patient does not appear toxic and does not describe overall infectious history -Monitor and repeat labs in the a.m. and after fluid resuscitation Large subcutaneous growth on the right cervical region; POA; ongoing and stable. -Admitted this patient to half weeks ago this growth appear to be a lymph node -It has grown considerably since this time and patient reports weight loss of 15 pounds and night sweats; patient also has some dysphagia although I suspect this is more due to her diabetes -CT shows that is in the parotid gland, but is unable to determine whether neoplasm or cyst -Ultrasound ordered, reveals only a homogenous mass. No associated adenopathy. This could be a sole lymph node. -Consider FNA prior to discharge due to concern for head and neck cancer Elevated alkaline phosphatase; POA; ongoing and stable. -Patient said more than 1 week of nausea and vomiting -Labs not wholly indicated biliary cause but will repeat CMP in a.m. -If persistent may be worth ultrasound of the right upper quadrant -Lipase History of MD with stent-atorvastatin, clopidogrel, and aspirin. CAD is present on admission and stable. Hypothyroid-continue home [place] Thyroid. POA and stable Frontal lobe syndrome-POA, stable Sleep apnea-POA and stable. Continue use home O2 Depression-POA and stable. Venlafaxine Migraines-amitriptyline Disposition: Patient is being admitted to inpatient status with expected length of stay greater than two midnights due to to severity of presentation, duration of treatment, and risks of adverse events disposition Anticipate another 24 hours of inpatient care. Discharge home contingent on clinical progress. Dangerous medications include insulin drip. Full code VTE Prophylaxis: Sub-Q Heparin (Unfractionated) Resuscitation Status: CPR: Attempt Resuscitation Jarocho Odonnell MD Mar 01, 2017 10:34
--- NOTE | 2017-03-01 10:51 | NUR ---
NUTRITION ASSESSMENT: ASSESS:46 YO female admitted with DKA and dehydration following ongoing nausea and vomiting of one week duration with an acute increase over the last 24 hours. Patient states that one week ago she started to become anorexic and had nausea and vomiting that restricted her oral intake. She has type 1 diabetes with an insulin pump and is usually compliant with diet and medications. The patient reports weight loss during this time. Records indicate that the patient has lost 3.7 kg over the past 3 weeks, likely the most during this past week = 5.71% = severe malnutrition. PMHx:Cardiac arrest secondary to hypoglycemia with residual neurological deficits of memory, type 1 diabetes with associated peripheral neuropathy and gastroparesis, Franky's disease, recent ETOH history, CAD, endometriosis, frontal lobs syndrome, MIGUELINA, PTSD, interstitial cystitis, depression, migraines, cholecystectomy. DIET:Consistent carb. PO intake not yet recorded. LABS: Reviewed. Na 132, CO2 17, Glu 224, recent A1c 9.0 (02/03/17). MEDICATIONS: Reviewed. Phosphorus, armour thyroid, insulin. NUTRITION FOCUSED PHYSICAL ASSESSMENT: GI symptoms / stool: No stool reported.Joshua: 18. Skin Integrity: No issues reported. ANTHROPOMETRICS: Current Wt: 61.1 kgBMI: 21.0 kg/m2. IBW: 47.8 kg (127.8% IBW). ESTIMATED NEEDS: Calories: 1528 - 1833 kcal (25 - 30 kcal / kg BW) Protein: 61 - 73 g protein 1.0 - 1.2 g / kg BW) NUTRITION DIAGNOSIS: 1)Severe malnutrition x 1 week related to ongoing nausea and vomiting, as evidenced by 5.71% weight loss x 1 - 3 weeks. INTERVENTION: 1) Will add Glucerna supplement for patients with diabetes to traEat Your [place]. 2) The patient has received numerous inpatient dietitian consultations related to her diabetes, most recently 02/04/17. Her compliance is generally good, and I suspect she will return to previous level of compliance. MONITOR/EVALUATE: Diet / supplement tolerance, PO intake, labs, GI/nutrition status. Follow up per high nutrition risk guidelines.
[2017-03-01 11:10] VITALS: BP 125/67; PULSE 90; RESP 15; O2SAT 97
[2017-03-01] MEDS ORDERED: Glucose 40% Oral Gel 15 Gm Tube PO PRN (14:20)
[2017-03-01] MEDS ORDERED: Dextrose 10% 250 ML IV PRN (14:28)
[2017-03-01 14:55] VITALS: PULSE 90
[2017-03-01] MEDS: Insulin GLARgine 100 Unit/mL Syringe SUBQ SCH (15:15)
[2017-03-01 15:53] VITALS: BP 112/63; PULSE 92; RESP 18; O2SAT 98
[2017-03-01] MEDS: Insulin LISPRO 300 Unit/3 mL Inj SUBQ SCH ×2 (18:01→21:28)
--- NOTE | 2017-03-01 18:19 | NUR ---
Insulin/Nausea Patient a/o x 3, denies pain or sob, but c/o nausea no emesis. Patient taking diet fair. Lantus given this afternoon and Insulin gtt discontinued per MD orders. VSS, tele SR. Kphos rider infusing.
[2017-03-01] MEDS: Ondansetron 2 mg/mL 2 mL Inj IVPUSH PRN ×2 (18:45→19:10)
[2017-03-01 20:30] VITALS: BP 129/74; PULSE 92; RESP 18; O2SAT 96
[2017-03-02] VITALS (13 sets, daily range): BP systolic 102–149; BP diastolic 63–81; PULSE 80–123; RESP 15–18; O2SAT 94–99
[2017-03-02] MEDS: Heparin 5,000 Unit/mL Inj SUBQ SCH ×4 (02:07→23:47)
--- NOTE | 2017-03-02 06:50 | NUR ---
Activities Pt up walking indep. Tolerating activities well. VSS. No overt complications noted.
[2017-03-02] MEDS: Insulin GLARgine 100 Unit/mL Syringe SUBQ SCH (07:58)
[2017-03-02] MEDS: Insulin LISPRO 300 Unit/3 mL Inj SUBQ SCH (08:07)
[2017-03-02] MEDS ORDERED: Insulin GLARgine 100 Unit/mL Syringe SUBQ ONE (08:10)
[2017-03-02] MEDS: METHYLPHENIDATE 36 MG PO SCH (08:30)
[2017-03-02] MEDS: Venlafaxine XR 75 mg ER24 Capsule PO SCH (09:31)
[2017-03-02] MEDS ORDERED: Benzocaine-Menthol Lozenge 2/Pkg PO PRN (10:45)
--- NOTE | 2017-03-02 11:12 | PCM.PNMED ---
Subjective Date of Service Mar 02, 2017 Subjective She is doing a lot better. About 50% improved. She still feels globally weak and has a sore throat. Her nausea and vomiting have resolved. She notes a long history of episodic vomiting about every 6 months that tends to lead to DKA. She would like to convert back to her insulin pump and monitor glucose there are now. No abdominal pain. No chest pain, cough, or dyspnea. No diarrhea, or difficulty urinating. No overnight events Exam Vital Signs Vital Sign - Last Date Time Temp Pulse Resp B/P Pulse Ox O2 Delivery O2 Flow Rate FiO2 03/02/17 10:02 90 03/02/17 07:45 36.8 16 135/79 95 Room Air Intake and Output 03/01/17 03/01/17 03/02/17 Cumulative From/Thru 15:00 23:00 07:00 02/28/17 13:18 - 03/02/17 06:33 Intake Total 2137 ml 400 ml 6504 ml Output Total 1700 ml Balance 2137 ml 400 ml 4804 ml Intake Oral 400 ml 400 ml IV Total 2137 ml 6104 ml Output Urine Total 1700 ml # Voids 2 2 Exam Alert and oriented -3, no distress. Fluent speech Anicteric sclera. Lungs are clear with normal rate and effort Heart is regular without murmur gallop or rub Abdomen soft nontender, flat Extremities are free of edema. Skin is free of rash or lesions. She has a nodule in the right submandibular region. This is 1 cm in diameter freely mobile and firm. This is been known for some time and is increasing in size. IVs and Medications Medications Reviewed: Medications were reviewed in detail Lab and Diagnostics Result Diagram: 03/01/17 0300 03/02/17 0825 X-Rays, CTs and MRIs Chest x-ray IMPRESSION: No acute pulmonary process. Dictated by: Devi Kwon M.D. on 02/28/2017 at 13:40 Assessment & Plan 46-year-old female with a complicated medical history presents with 1 week of nausea and vomiting that acutely worsened last night. Workup in the emergency department on the floor indicates DKA with an anion gap of 41 with small amount of ketones in the serum. Patient also has a large subcutaneous growth on the right cervical region suspicious for malignancy. DKA with type I diabetes with gastroparesis and neuropathy; POA, resolved. -Patient presents with a glucose over 700, and small amount of ketones in the serum, with an anion gap of 41 -Patient is a type I diabetic usually well controlled and this was likely set off due to her persistent nausea and vomiting -Patient states she has been compliant with her medication (she is on a insulin pump) although she has not been eating -DKA protocol, stopped. Will let her resume her pump today. \\Diabetes mellitus 2, POA. Will resume her insulin pump. Continue IVF. Acute leukocytosis; POA, resolved. -Patient presents with white count of 25, likely due to stress reaction but infection not ruled out -Blood cultures ordered; will hold abx for now -Procalcitonin is elevated but patient does not appear toxic and does not describe overall infectious history -Monitor and repeat labs in the a.m. and after fluid resuscitation Large subcutaneous growth on the right cervical region; POA; ongoing and stable. -Admitted this patient to half weeks ago this growth appear to be a lymph node -It has grown considerably since this time and patient reports weight loss of 15 pounds and night sweats; patient also has some dysphagia although I suspect this is more due to her diabetes -CT shows that is in the parotid gland, but is unable to determine whether neoplasm or cyst -Ultrasound ordered, reveals only a homogenous mass. No associated adenopathy. This could be a sole lymph node. -Will order an IR biopsy for Friday before discharge. Elevated alkaline phosphatase; POA; ongoing and stable. -Patient said more than 1 week of nausea and vomiting -Labs not wholly indicated biliary cause but will repeat CMP in a.m. -If persistent may be worth ultrasound of the right upper quadrant -Lipase CAD with history of IA with stent-atorvastatin, clopidogrel, and aspirin. CAD is present on admission and stable. Hypothyroid-continue home [place] Thyroid. POA and stable Frontal lobe syndrome-POA, stable Sleep apnea-POA and stable. Continue use home O2 Depression-POA and stable. Venlafaxine Migraines-amitriptyline Disposition: Patient is being admitted to inpatient status with expected length of stay greater than two midnights due to to severity of presentation, duration of treatment, and risks of adverse events disposition Anticipate another 24 hours of inpatient care. Discharge home contingent on clinical progress. Full code VTE Prophylaxis: Sub-Q Heparin (Unfractionated) Resuscitation Status: CPR: Attempt Resuscitation Jarocho Odonnell MD Mar 02, 2017 11:12
--- NOTE | 2017-03-02 11:20 | NUR ---
Social Work- Initial Assessment/Multidisciplinary Rounds Data: See Initial Assessment. Pt is a 46 year old female admitted for DKA-Dehydration per H&P. Pt's insurance is [employer]. Pt's PCP is Tito Knight MD but pt reports that she is looking for a new [employer]. Pt's readmit risk score is 5/8, high risk. Pt discussed in multidisciplinary rounds, pt is likely to receive biopsy tomorrow, anticipate d/c in 1-2 days. SW met with pt at bedside regarding d/c plan. Pt alert and oriented x3. Pt's capacity for self-care assessed. Pt resides in [place] with her daughter, son, and 2 grandchildren where she is independent with ADLs and self-care. Pt occasionally helps babysit her grandchildren. Pt's son is designated d/c planning contact. Pt has no DPOA on file, SW provided paperwork at bedside. Pt uses no DME and drives. Pt has no HH, SNF history. Pt to d/c home with family to transport via POV when medically ready. No D/C needs anticipated. SW provided d/c planning checklist at bedside, wrote plan and phone number on whiteboard. All updated and agreeable to plan. SW will continue to follow. Assessment: Pt who is independent with ADLs and self-care. Plan: Pt to d/c home with family to transport via POV. No d/c needs. SW will continue to follow. MARCOS Vuong Addendum: 03/02/17 at 1127 by JENNI DALLAS Amended: Links added.
--- NOTE | 2017-03-02 17:19 | NUR ---
Insulin pump Patient a/o x 4, denies pain or sob. Had mild nausea with meals, declined Zofran, taking diet fair. Patient oob indep in room, steady gait. Patient restarted her Insulin pump this afternoon, per MD orders and patient instructed on glucose monitoring and documentation Q 4 hr. Tele SR with occassional bursts of ST 150's patient denies chest pain, but c/o dizziness with rapid heart rate, Md aware. Plan for npo after midnight for biopsy on 03/03/17. Will cont poc.
--- NOTE | 2017-03-03 | NUR ---
Chest Pain: Pt. complaining of 01/20 chest "tightness and pressure" and 2325. VSS, STAT EKG performed indicating sinus rhythm. orthodontic technician assistant observes that pt. intermittently goes into sinus tach, with HR:110-120, however most often pt. is in sinus rhythm with HR: 90's. Physician notified of findings. Physician arrived to bedside to assess pt. Orders for sublingual nitro received. Three sublingual nitro administered per protocol, vital signs remained stable during nitro administration. After three sublingual nitro administered, pt. denies further chest tightness. Will continue to monitor. Addendum: 03/03/17 at 0622 by AMANDA YANEZ RN No further episodes of chest pain during shift.
[2017-03-03 02:52] VITALS: BP 102/64; PULSE 84; RESP 16; O2SAT 97
[2017-03-03 08:11] VITALS: BP 121/77; PULSE 85; RESP 16; O2SAT 97
[2017-03-03 08:15] VITALS: PULSE 140
[2017-03-03 08:56] LABS: Mean Corpuscular Hemoglobin 31.9 pg (27.0-35.0); Mean Corpuscular Volume 90.7 fL (81-100)
--- NOTE | 2017-03-03 09:17 | PCM.DIMED ---
Discharge Instructions Date of Service Mar 03, 2017 Dates of Hospitalization Feb 28, 2017 at 15:50 Discharge Diagnosis Discharge Diagnosis DKA with type I diabetes with gastroparesis and neuropathy, resolved. Intractable vomiting, resolved. Large subcutaneous growth on the right parotid gland, stable. Elevated alkaline phosphatase, stable. CAD ,stable. Hypothyroid, stable. Frontal lobe syndrome, stable. Sleep apnea, stable. Depression, stable. Migraines, stable. Diet Discharge Diet: Diabetic Activity Discharge Activity: No restrictions Patient Instructions Patient Instructions Please reschedule your appointment with ear nose and throat for evaluation and biopsy of your right neck mass. Jonas Odonnell MD, . Please call me if you are having a hard time coordinating outpatient biopsy of mass. Follow-up Provider: Tito Knight MD Follow-up with PCP in: 1 week Provider: Jose River MD Follow-up in: 3 weeks Jarocho Odonnell MD Mar 03, 2017 09:17
--- NOTE | 2017-03-03 10:36 | NUR ---
Social Work: Discharge/Multidisciplinary Rounds D: Pt discussed in multidisciplinary rounds; pt is medically stable for discharge home with no social work needs. Capacity for Self-Care addressed; no concerns at this time. Pt has been completing ADLs I during admission. BANQUET PILOT met with the patient at bedside to confirm discharge plan and assess for unmet needs. Pt states she lives at home in [place] with her Family. She is I at baseline and has been ambulating I during admission. She states she has no concerns at this. Pt's son will be transporting her home. A: Pt who is I at baseline. P: Pt to discharge home with son to transport and no sw needs. MARCOS Reynaga
--- NOTE | 2017-03-03 10:55 | NUR ---
Discharge note Patient a/o x 4, denies pain, nausea or sob. up indep steady gait. Patient monitoring her Insulin pump and glucose q 4 hr. VSS, tele SR-ST up to 140's, patient denies chest pain or palpatations with ST. IV SL and tele removed intact. Patient given discharge orders, med rec, info on DKA and biopsy procedure. All questions answered. Patient amb to car with all belongings and discharged home with family.
--- NOTE | 2017-03-03 11:28 | NUR ---
Took over patient care from Megan Arnold 1045 am
--- NOTE | 2017-03-03 15:37 | PCM.DC.MED ---
Discharge Summary Date of Service Mar 03, 2017 Dates of Hospitalization Date of Hospital Admission Feb 28, 2017 at 15:50 Date of Discharge: Mar 03, 2017 Providers: Admitting Physician: Jarocho Odonnell MD Primary Care Physician: Tito Knight MD Attending Physician: Jarocho Odonnell MD Diagnosis at Time of Discharge Diagnosis at Time of Discharge DKA with type I diabetes with gastroparesis and neuropathy, resolved. Intractable vomiting, resolved. Large subcutaneous growth on the right parotid gland, stable. Elevated alkaline phosphatase, stable. CAD ,stable. Hypothyroid, stable. Frontal lobe syndrome, stable. Sleep apnea, stable. Depression, stable. Migraines, stable. Consultations None Procedures XRay, CTs & MRIs Chest x-ray IMPRESSION: No acute pulmonary process. Dictated by: Devi Kwon M.D. on 02/28/2017 at 13:40 Brief History 46-year-old female with a history of cardiac arrest 2-3 years ago with minor brain damage consisting of short and long-term memory impairment, type I diabetes complicated by peripheral neuropathy and gastroparesis, myocardial infarction with stenting in July 2015, and psychiatric conditions including PTSD, depression, and frontal lobe syndrome, who presents to emergency department from acute care due to ongoing nausea and vomiting of one week duration with an acute increase over the last 24 hours. Patient states that one week ago she started to become anorexic and had nausea and vomiting that restricted her oral intake. Patient states that she has not had any fevers, chills, diarrhea or constipation. Denies cough, headache, chest pain or shortness of breath. Patient does state that she has been experiencing weight loss and night sweats as well as an increase growth in the subcutaneous tissues underneath the angle of the right mandible. She states that she has been compliant with her insulin and denies not following a diabetic diet. Patient denies polyuria In the emergency room the patient was noted to have an anion gap of 41, elevated lactate, leukocytosis, and a blood sugar greater than 700. Hospital Course 46-year-old female with a complicated medical history presents with 1 week of nausea and vomiting that acutely worsened last night. Workup in the emergency department on the floor indicates DKA with an anion gap of 41 with small amount of ketones in the serum. Patient also has a large subcutaneous growth on the right cervical region suspicious for malignancy. DKA with type I diabetes with gastroparesis and neuropathy; POA, resolved. -Patient presents with a glucose over 700, and small amount of ketones in the serum, with an anion gap of 41 -Patient is a type I diabetic usually well controlled and this was likely set off due to her persistent nausea and vomiting -Patient states she has been compliant with her medication (she is on a insulin pump) although she has not been eating - She was treated for DKA protocol with insulin drip. She was converted to insulin pump 2 days prior to discharge. She had resolution of her nausea and vomiting which precipitated her DKA. This is consistent with her history of episodic vomiting in context of her gastropathy. Acute leukocytosis; POA, resolved. -Patient presents with white count of 25, likely due to stress reaction but infection not ruled out -Blood cultures ordered; will hold abx for now -Procalcitonin is elevated but patient does not appear toxic and does not describe overall infectious history - There was no clear evidence of systemic infection. This was followed clinically. Large subcutaneous growth on the right cervical region; POA; ongoing and stable. -Admitted this patient to half weeks ago this growth appear to be a lymph node -It has grown considerably since this time and patient reports weight loss of 15 pounds and night sweats; patient also has some dysphagia although I suspect this is more due to her diabetes -CT shows that is in the parotid gland, but is unable to determine whether neoplasm or cyst -Ultrasound ordered, reveals only a homogenous mass. No associated adenopathy. This could be a sole lymph node. Previous CT indicated a right parotid gland mass without evidence of adenopathy. The patient does have a family history of head and neck cancer. It was not feasible to get a biopsy of this inpatient and she will follow-up with otolaryngology as scheduled to arrange for outpatient biopsy. Elevated alkaline phosphatase; POA; ongoing and stable. -Patient said more than 1 week of nausea and vomiting -Labs not wholly indicated biliary cause but will repeat CMP in a.m. - This was simply followed. All other issues below remained quiescent Center in hospitalization. CAD with history of PR with stent-atorvastatin, clopidogrel, and aspirin. CAD is present on admission and stable. Hypothyroid-continue home [place] Thyroid. POA and stable Frontal lobe syndrome-POA, stable Sleep apnea-POA and stable. Continue use home O2 Depression-POA and stable. Venlafaxine Migraines-amitriptyline Patient is felt to be stable for discharge on March 03. Full code Exam Vital Signs (Last) Date Time Temp Pulse Resp B/P Pulse Ox O2 Delivery O2 Flow Rate FiO2 03/03/17 08:15 140 03/03/17 08:11 36.7 16 121/77 97 Room Air 03/02/17 23:56 4.00 Exam Patient was seen and examined on the day of discharge Test 02/28/17 13:17 02/28/17 19:20 03/01/17 03:00 03/01/17 10:00 Prothrombin Time 9.6sec (8.1-12.5) Prothromb Time International Ratio 0.90ratio Troponin T < 0.010ug/L (0.0-0.011) Osmolality 314 (275-300) Lactate Dehydrogenase 218U/L (100-190) Neutrophils (%) (Auto) 77.4% (40-74) Lymphocytes (%) (Auto) 14.2% (14-46) Monocytes (%) (Auto) 8.0% (4-12) Eosinophils (%) (Auto) 0% (0-5) Basophils (%) (Auto) 0.1% (0-3) Phosphorus Level 1.9mg/dL (2.5-4.9) Magnesium Level 1.9mg/dL (1.6-2.6) Lipase 96U/L (13-60) Procalcitonin 0.08ng/mL (0.00-0.08) Lactic Acid Level 0.7mmol/L (0.4-2.0) Ketones Small (Negative) Test 03/01/17 10:50 03/03/17 08:45 Ionized Calcium 1.27mmol/L (1.17-1.32) White Blood Count 8.6th/mm3 (3.8-10.1) Red Blood Count 4.52mil/mm3 (3.90-5.20) Hemoglobin 14.4g/dL (12.0-15.6) Hematocrit 41.0% (35.0-46.0) Mean Corpuscular Volume 90.7fL (81-100) Mean Corpuscular Hemoglobin 31.9pg (27.0-35.0) Mean Corpuscular Hemoglobin Concent 35.1% (32.0-37.0) Red Cell Distribution Width 13.3% (12.3-15.4) Platelet Count 225bil/L (150-400) Sodium Level 139mEq/L (134-144) Potassium Level 4.1mEq/L (3.5-5.2) Chloride Level 101mEq/L (97-108) Carbon Dioxide Level 24mmol/L (18-29) Blood Urea Nitrogen 16mg/dL (6-24) Creatinine 0.74mg/dL (0.57-1.00) Estimat Glomerular Filtration Rate 120mL/min (>59) Glucose Level 242mg/dL (60-99) Calcium Level 9.7mg/dL (8.5-10.1) Total Bilirubin 0.4mg/dL (0.0-1.2) Aspartate Amino Transf (AST/SGOT) 46U/L (0-50) Alanine Aminotransferase (ALT/SGPT) 47U/L (0-32) Alkaline Phosphatase 123U/L (25-150) Total Protein 6.3g/dL (6.4-8.4) Albumin 3.9g/dL (3.4-5.0) Discharge Medications Discharge Medications ([Testosterone Cr Comp]) 0.1 ML TOPICAL QAM (Reported) DAB SMALL AMT TO WRISTS Amitriptyline (Amitriptyline) 25 Mg Tab 50 MG PO HS (Reported) Aspirin (Aspirin) 81 Mg Tablet 81 MG PO DAILY Prescribed by: ERIKA GRIJALVA DO Atorvastatin Calcium (Atorvastatin Calcium) 20 Mg Tablet 20 MG PO DAILY ( Reported) Clopidogrel (Clopidogrel) 75 Mg Tablet 75 MG PO DAILY Prescribed by: ERIKA GRIJALVA DO Estradiol (Estradiol) 2 Mg Tablet 2 MG PO QAM (Reported) Gabapentin (Gabapentin) 800 Mg Tablet 1,600 MG PO TID (Reported) Insulin Human Lispro (HumaLOG U100 Insulin Vial) 100 Unit/Ml Unit 0.9 UNITS SQ ASDIRECTED (Reported) INSULILN 22 UNITS/DAY BASAL RATE PER INSULIN PUMP. Methylphenidate ER (Concerta) 36 Mg Tab.er.24 36 MG PO QAM (Reported) Multivitamin (Multivitamins) 1 Each Capsule 1 EACH PO DAILY (Reported) Progesterone,Micronized (Progesterone) 100 Mg Capsule 200 MG PO QAM (Reported) Thyroid,Pork ([place] Thyroid) 60 Mg Tablet 30 MG PO DAILY (Reported) Venlafaxine ER (Venlafaxine ER) 225 Mg Tab.er.24 225 MG PO QAM (Reported) As needed Acetaminophen (Acetaminophen) 325 Mg Tablet 650 MG PO Q6H PRN PRN For Pain ( Reported) Ibuprofen (Ibuprofen) 600 Mg Tablet 600 MG PO QID PRN PRN For Pain (Reported) Followup Plan Disposition: Home Discharge Diet: Diabetic Discharge Activity: No restrictions Patient Instructions Please reschedule your appointment with ear nose and throat for evaluation and biopsy of your right neck mass. Jonas Odonnell MD, . Please call me if you are having a hard time coordinating outpatient biopsy of mass. Follow-up Provider: Tito Knight MD Follow-up with PCP in: 1 week Provider: Jose River MD Follow-up in: 3 weeks Time spent 45 minutes Jarocho Odonnell MD Mar 03, 2017 15:37
[2017-03-03] MEDS ORDERED: METO25TA99 PO (19:08)
== END 2017-03-03 11:10 | disposition home or self-care (01) | DRG 639 ==
LOC: SED 13:00 → EDBD 13:00 → PCC 15:50 → CCU 17:30 → PCC 03-01 14:33
PROVIDERS: ADMIT Hospitalist; ATTEND Hospitalist
DX: E10.10 Type 1 diabetes mellitus with ketoacidosis without coma (principal); I25.10 Atherosclerotic heart disease of native coronary artery without angina pectoris; E10.42 Type 1 diabetes mellitus with diabetic polyneuropathy; E03.9 Hypothyroidism, unspecified; E87.5 Hyperkalemia; E86.0 Dehydration; K31.84 Gastroparesis; G47.30 Sleep apnea, unspecified; G43.909 Migraine, unspecified, not intractable, without status migrainosus; F32.9 Major depressive disorder, single episode, unspecified; R22.1 Localized swelling, mass and lump, neck; I25.2 Old myocardial infarction; Z88.0 Allergy status to penicillin; Z87.891 Personal history of nicotine dependence; Z79.82 Long term (current) use of aspirin; Z95.5 Presence of coronary angioplasty implant and graft; Z79.4 Long term (current) use of insulin

== ENCOUNTER 2017-03-03 16:00 | Emergency (ER) | payer OTHER ==
[~2017-03-03] VITALS: Ht 170.2 cm; Wt 60.9 kg
[~2017-03-03 16:00] MED LIST changes: +ATOR20TA65 PO; -INSU100C11 SUBQ; -METH-295 PO; -ONDA4TAB9 PO; -ROSU20TA27 PO; -humalog insulin pump SUBQ
[2017-03-03 16:11] VITALS: BP 139/82; PULSE 112; RESP 16; O2SAT 97
[2017-03-03] MEDS ORDERED: 0.9% Sodium Chloride 1,000 ML IV ONE (16:42)
[2017-03-03] MEDS ORDERED: Ondansetron 2 mg/mL 2 mL Inj IVPUSH ONE (16:45)
--- NOTE | 2017-03-03 16:49 | ED.REPORT ---
HPI-Chest Pain 40 and Over Date of Service Mar 03, 2017 ED Provider: Dr. Tse The pt is a 46 y/o female with a hx of DM I, DKA, CAD, LAD stent on Plavix who presents to the ED complaining of rapid heart rate, onset few hours ago while the pt was in the shower. She recorded her pulse at 160. The pt was discharged this morning from the hospital for DKA. Associated sx include chest tightness, shortness of breath, lightheadedness, fatigue and malaise. She denies chest pain , lower extremity edema, dysuria, increased urinary frequency, diarrhea and vomiting. In the ED, the pt is not experiencing any chest discomfort or shortness of breath and reports that she feels fine. Nursing Notes Stated Complaint: TACHYCARDIA SOB Chief Complaint: Dysrhythmia/Cardiac Nursing Notes Reviewed: Yes Allergies: Coded Allergies: Penicillins (Verified Allergy, Severe, ANAPHYLAXIS, 03/03/17) quetiapine (Verified Allergy, Unknown, 03/03/17) Uncoded Allergies: nicotine patch (Adverse Reaction, Intermediate, 03/26/13) Scheduled ([Testosterone Cr Comp]) 0.1 ML TOPICAL QAM DAB SMALL AMT TO WRISTS Amitriptyline (Amitriptyline) 25 Mg Tab 50 MG PO HS Aspirin (Aspirin) 81 Mg Tablet 81 MG PO DAILY Atorvastatin Calcium (Atorvastatin Calcium) 20 Mg Tablet 20 MG PO DAILY Clopidogrel (Clopidogrel) 75 Mg Tablet 75 MG PO DAILY Estradiol (Estradiol) 2 Mg Tablet 2 MG PO QAM Gabapentin (Gabapentin) 800 Mg Tablet 1,600 MG PO TID Insulin Human Lispro (HumaLOG U100 Insulin Vial) 100 Unit/Ml Unit 0.9 UNITS SQ ASDIRECTED INSULILN 22 UNITS/DAY BASAL RATE PER INSULIN PUMP. Methylphenidate ER (Concerta) 36 Mg Tab.er.24 36 MG PO QAM Metoprolol Succinate ER (Metoprolol Succinate ER) 25 Mg Tab.er.24h 25 MG PO DAILY Multivitamin (Multivitamins) 1 Each Capsule 1 EACH PO DAILY Progesterone,Micronized (Progesterone) 100 Mg Capsule 200 MG PO QAM Thyroid,Pork ([place] Thyroid) 60 Mg Tablet 30 MG PO DAILY Venlafaxine ER (Venlafaxine ER) 225 Mg Tab.er.24 225 MG PO QAM Scheduled PRN Acetaminophen (Acetaminophen) 325 Mg Tablet 650 MG PO Q6H PRN PRN For Pain Ibuprofen (Ibuprofen) 600 Mg Tablet 600 MG PO QID PRN PRN For Pain General Time Seen by MD: 17:19 Chief Complaint Other (rapid heart rate) Hx Obtained From: Patient Arrived By: Walk-in Sudden in Onset?: Yes Onset Occurred: 1 - 4 hours ago Symptom Duration: Since onset Location: : Substernal Quality: Painful Radiation: : Does not radiate Severity: Current: No pain currently Severity: Maximum: Moderate Recent Healthcare: Recent doctor visit, Recent hospitalization Past Medical History Past Medical History Notes: Admit to [facility] for DKA 10/2015, + CAD/troponins -> Taken to medical laboratory manager (complex anatomy - see cardiology notes, plan for possible intervention at [facility] possibly next month-not scheduled Past Medical History Gastroporesis Franky's disease Type 1 diabetes mellitus for 21+ years -peripheral neuropathy -History of DKA. History of alcohol abuse, quit four years ago. Hypothyroidism. LUANA plus BSO for painful endometriosis. History of difficulty emptying bladder, on Flomax Frontal lobe syndrome Sleep apnea PTSD Interstitial cystitis Adhesive capsulitis H. pylori infection Pancreatitis Reports: Coronary artery disease, Diabetes mellitus Reports: Depression, Migraines Past Surgical History Colonoscopy Tubal ligation Cholecystectomy Hysterectomy C[place]ac Cath - complex lesion involving LAD with significant collaterals Family History GA HTN Hyperlipidemia NO diabetes in family Reports: Cancer Smoking History Former Smoker Social History Alcohol abuse x25 years with 6 years of sobriety Alcohol Use: Denies alcohol use Drug Use: Denies drug use Other Social History: Local resident Ambulatory Status Independent Review of Systems Reports: rapid heart rate Constitutional: Reports: Fatigue, Malaise Respiratory: Reports: Shortness of breath Cardiovascular: Reports: Chest pain (tightness), Denies: Edema GI: Denies: Diarrhea, Vomiting Neurologic: Reports: Lightheaded Complete sys rev & neg: except as marked. Female: Denies: Dysuria, Urinary frequency Physical Exam Initial Vital Signs Vital Signs (First) Date Time Temp Pulse Resp B/P Pulse Ox O2 Delivery O2 Flow Rate FiO2 03/03/17 16:11 36.5 112 16 139/82 97 Room Air Initial VS: Reviewed Head / Eyes: Atraumatic, Normocephalic Neck: Supple, Non-tender, Full range of motion Extremities: Vascular intact, Neuro intact, No swelling, No tenderness Skin: Warm, Dry, No cyanosis Neurologic: Alert, Oriented, Nonfocal General/Constitutional: Awake, Alert, No acute distress, Well appearing, Cooperative Respiratory / Chest: Atraumatic, Breath sounds NL, Breath sounds = bilat, No respiratory distress, No rales, No rhonchi, No wheezing Cardiovascular: Regular rhythm, Heart sounds NL, No gallop, No murmurs, No rubs Heart Rate / Rhythm: Positive: Tachycardia Abdomen: Atraumatic, Soft, Non-tender, No guarding, No rebound Interpretation & Diagnostics Lab Results Interpretation Result Diagram: 03/03/17 1643 03/03/17 1643 Test 03/03/17 16:43 03/03/17 18:29 White Blood Count 9.5th/mm3 (3.8-10.1) Red Blood Count 4.17mil/mm3 (3.90-5.20) Hemoglobin 13.5g/dL (12.0-15.6) Hematocrit 37.9% (35.0-46.0) Mean Corpuscular Volume 90.9fL (81-100) Mean Corpuscular Hemoglobin 32.4pg (27.0-35.0) Mean Corpuscular Hemoglobin Concent 35.6% (32.0-37.0) Red Cell Distribution Width 13.0% (12.3-15.4) Platelet Count 205bil/L (150-400) Neutrophils (%) (Auto) 63.1% (40-74) Lymphocytes (%) (Auto) 26.6% (14-46) Monocytes (%) (Auto) 8.2% (4-12) Eosinophils (%) (Auto) 1.5% (0-5) Basophils (%) (Auto) 0.3% (0-3) Prothrombin Time 8.9sec (8.1-12.5) Prothromb Time International Ratio 0.83ratio Activated Partial Thromboplast Time 18.2sec (22.8-33.0) Sodium Level 130mEq/L (134-144) Potassium Level 4.9mEq/L (3.5-5.2) Chloride Level 93mEq/L (97-108) Carbon Dioxide Level 22mmol/L (18-29) Blood Urea Nitrogen 20mg/dL (6-24) Creatinine 0.82mg/dL (0.57-1.00) Estimat Glomerular Filtration Rate 107mL/min (>59) Glucose Level 370mg/dL (60-99) Calcium Level 9.7mg/dL (8.5-10.1) Magnesium Level 1.7mg/dL (1.6-2.6) Total Bilirubin 0.5mg/dL (0.0-1.2) Aspartate Amino Transf (AST/SGOT) 64U/L (0-50) Alanine Aminotransferase (ALT/SGPT) 53U/L (0-32) Alkaline Phosphatase 125U/L (25-150) Pro-B-Type Natriuretic Peptide 61.20pg/mL (0-249) Total Protein 6.8g/dL (6.4-8.4) Albumin 3.9g/dL (3.4-5.0) Ketones Negative (Negative) Troponin T < 0.010ug/L (0.0-0.011) ECG Interpretation ECG Interpretation: Sinus tachycardia. Rate 103. Low voltage, precordial leads. Time: 17:00 Interpreted by: ED physician ECG Interpretation: Sinus tachycardia. Rate 120 Old anteroseptal infarct. Time: 18:21 Interpreted by: ED physician CT Chest Interpretation IMPRESSION: 1. No evidence for acute central pulmonary embolism. 2. Small pericardial effusion. 3. Mild emphysema. 4. A 2 mm nodule in the left lower lobe, stable since 06/08/2014, consistent with a benign nodule. Dictated by: Alistair Jones M.D. on 03/03/2017 at 18:20 Approved by: Alistair Jones M.D. on 03/03/2017 at 18:27 Study type: CT pulm angiogram Interpretation / Wet Read by: Interpret - Radiologist Re-Eval/Medical Decision Med Decision/Clinical Course Patient presents after an episode of shortness of breath earlier in the day. EEG shows sinus tachycardia without acute ST changes. Serial troponins are negative, CT of the chest failed to show pulmonary embolism. She does have a small pericardial effusion however has a normal blood pressure and normal heart sounds, tamponade Seems Unlikely. Additionally the Patient Had an Elevated Glucose without Signs of DKA Which She Treated with Her Insulin Pump and the Glucose Normalized to 177. The Patient Is in No Acute Distress While in the ER and Has ambulated without difficulty or recurrent symptoms. The case is discussed with cardiology television technician who recommends serial troponins given the recent stress testing, as well as starting metoprolol. Recommended the patient call cardiology in the morning for close follow-up or return to the ER as needed if worse. Return and follow-up precautions given. Source of Hx: Old records Time of Eval: 18:39 Re-Evaluation/Progress Note: Rechecked pt. She states she feels fine. She is asymptomatic. Discussed lab results, imaging results, diagnosis and plan to discharge if the repeat troponin is negative. Pt understands and agrees with the plan. F/U instruction and RTER warning given. She will call cardiology tomorrow. All questions addressed. Consultation #1: Referral / Consult Name: Autumn Araujo MD Consulted With: Cardiology Call Returned at: 17:52 Note: Dr. Araujo recommends discharging the pt if the serial troponin is negative. Consultation #2: Referral / Consult Name: Autumn Araujo MD Consulted With: Cardiology Call Returned at: 18:31 Note: Recommends calling cardiology inthe morning and starting he pt on 25mg metoprolol. Counseled Regarding: Diagnosis Discharge & Departure Primary Impression: Tachycardia Disposition: Home Discharge Condition All VS Reviewed: Yes Condition: Stable Additional Instructions: Your Workup is reassuring. Take metoprolol as prescribed along with your other medications. Keep your blood sugars under control. Call cardiology in the morning for close outpatient follow-up. Return to the ER as needed for recurrent or persistent chest pain, persistent shortness of breath, or other concerns. Referrals: Tito Knight MD (PCP) Javier Rivas MD Scribe Attestation Portions of this note were transcribed by Kristi Marques. I,, personally performed the history,physical exam and medical decision-making;I reviewed and confirmed the accuracy of the information in the transcribed note. Signed by Julius Young. 03/03/17 copies to: Tito Knight MD, Timothy S DO Mar 03, 2017 16:49 Kristi Marques Mar 03, 2017 17:22
[2017-03-03 16:53] LABS: BASOPHILS % (AUTO) 0.3 % (0-3); EOSINOPHILS % (AUTO) 1.5 % (0-5); MONOCYTES % (AUTO) 8.2 % (4-12); Mean Corpuscular Hemoglobin 32.4 pg (27.0-35.0); Mean Corpuscular Volume 90.9 fL (81-100); NEUTROPHILS % (AUTO) 63.1 % (40-74); Platelet Count 205 bil/L (150-400)
[2017-03-03 16:56] VITALS: BP 121/75; PULSE 109; RESP 16; O2SAT 96
[2017-03-03 17:14] LABS: INR 0.83 ratio
[2017-03-03 17:32] LABS: Magnesium 1.7 mg/dL (1.6-2.6)
[2017-03-03 17:38] VITALS: BP 135/89; PULSE 107; RESP 16; O2SAT 98
[2017-03-03 17:39] LABS: TROPONIN T < 0.010 ug/L (0.0-0.011)
[2017-03-03] MEDS ORDERED: MeTOProlol 1 mg/mL 5 mL Inj IVPUSH ONE (18:25)
--- NOTE | 2017-03-03 18:28 | DRSVH ---
PROCEDURE: CT ANGIO CHEST PULMONARY EMBOLISM ([id number]) INDICATIONS: chest pain, near syncope, recent hospitalization TECHNIQUE: After the administration of intravenous contrast, 2 mm thick sections acquired from the pulmonary api nicolasa to the posterior costophrenic angles. 3-dimensional maximum intensity projection (MIP) coronal a nd sagittal reformats were then acquired through the thorax. For radiation dose reduction, the follo wing was used: automated exposure control, adjustment of mA and/or kV according to patient size. COMPARISON: [facility], CT, IVP-CT (ABD W/WO;PEL W/W/O), 06/08/2014, 9:39. [facility], CT, CT ABD PELVIS W CON, 10/21/2015, 23:40. [facility], CT, CHEST ANGIO-PE, 02/24/2008, 21:30. FINDINGS: Image quality: Excellent. Pulmonary arteries: Pulmonary arteries are normal in size, and demonstrate no intraluminal filling d efects to suggest central pulmonary embolism. Lungs and pleura: Mild centrilobular emphysema. There is a 2 mm subpleural nodule in the left lower lobe, unchanged from 06/06/2014, consistent with a benign nodule. There is bibasilar atelectasis. Isaias gs are otherwise clear. No pleural effusions or pneumothorax. Central and peripheral airways are pa tent. Mediastinum: Heart size is normal. There is a small small pericardial effusion. No mediastinal or h ilar adenopathy. Thoracic aorta is normal in caliber and enhancement. Esophagus is normal in calibe r. There is a small hiatal hernia. Bones and chest wall: No suspicious bony lesions. Ribs and thoracic spine appear intact throughout. Thyroid gland is normal. No axillary or supraclavicular adenopathy. Abdomen: Visualized upper abdominal solid organs appear normal in the early arterial phase of enhanc ement. Cholecystectomy clips noted. IMPRESSION: 1. No evidence for acute central pulmonary embolism. 2. Small pericardial effusion. 3. Mild emphysema. 4. A 2 mm nodule in the left lower lobe, stable since 06/08/2014, consistent with a benign nodule. Dictated by: Alistair Jones M.D. on 03/03/2017 at 18:20 Approved by: Alistair Jones M.D. on 03/03/2017 at 18:27
[2017-03-03] MEDS ORDERED: MeTOProlol XL 25 mg ER24 Tablet PO ONE (18:35)
[2017-03-03] MEDS ORDERED: METO-386 PO (19:08)
[2017-03-03 19:12] VITALS: BP 120/84; PULSE 94; RESP 14; O2SAT 98
== END 2017-03-03 19:26 | disposition home or self-care (01) ==
LOC: SED 16:00
DX: R00.0 Tachycardia, unspecified (principal); R07.89 Other chest pain; R06.02 Shortness of breath; R42 Dizziness and giddiness; R53.83 Other fatigue; I25.10 Atherosclerotic heart disease of native coronary artery without angina pectoris; F32.9 Major depressive disorder, single episode, unspecified; G43.909 Migraine, unspecified, not intractable, without status migrainosus; E10.43 Type 1 diabetes mellitus with diabetic autonomic (poly)neuropathy; E03.9 Hypothyroidism, unspecified; E10.10 Type 1 diabetes mellitus with ketoacidosis without coma; Z87.891 Personal history of nicotine dependence; Z79.82 Long term (current) use of aspirin; Z79.4 Long term (current) use of insulin; Z88.0 Allergy status to penicillin; Z88.8 Allergy status to other drugs, medicaments and biological substances
CPT/HCPCS: 36415; 71275; 80053; 82009; 83735; 83880; 84484; 85025; 85610; 85730; 93005; 96361; 96374; 96375; 99285; J2270; J2405; J7030; Q9967

== ENCOUNTER 2017-03-23 16:46 | Observation (INO) | payer OTHER ==
[~2017-03-23] VITALS: Ht 170.2 cm; Wt 63.3 kg
[~2017-03-23 16:46] MED LIST changes: +METO-386 PO
[2017-03-23 16:48] VITALS: BP 115/71; PULSE 121; RESP 24; O2SAT 100
--- NOTE | 2017-03-23 16:57 | ED.REPORT ---
HPI-Chest Pain 40 and Over Date of Service Mar 23, 2017 ED Provider: Davion Davison MD The pt is a 46 year old female on Plavix with a with a history of type 1 diabetes, CAD, DKA, [place] and LAD stent placed at in 07/2016 who presents to the ED complaining of chest pain. The pt began experienced a brief episode of syncope at 14:30 today in addition to lightheadedness, shortness of breath and chest pressure. These symptoms are similar to those she experienced during her [place]. The pt is concerned because her stent is currently on recall and she believes that it may be failing. She was last seen in this ED complaining of rapid heart rate and shortness of breath. CT angiogram showed no evidence of PE and the pt was noted to not have signs of DKA. Serial troponin studies were negative. The pt was discussed with cardiology, who recommended discharge with outpatient management. The pt is on an 81 mg aspirin daily, which she last took this morning. Nursing Notes Stated Complaint: HEART Chief Complaint: Chest Pain Nursing Notes Reviewed: Yes Allergies: Coded Allergies: Penicillins (Verified Allergy, Severe, ANAPHYLAXIS, 03/23/17) quetiapine (Verified Allergy, Unknown, 03/23/17) Uncoded Allergies: nicotine patch (Adverse Reaction, Intermediate, 03/26/13) Scheduled Amitriptyline (Amitriptyline) 25 Mg Tab 50 MG PO HS Aspirin (Aspirin) 81 Mg Tablet 81 MG PO DAILY Atorvastatin Calcium (Atorvastatin Calcium) 20 Mg Tablet 20 MG PO DAILY Clopidogrel (Clopidogrel) 75 Mg Tablet 75 MG PO DAILY Estradiol (Estradiol) 2 Mg Tablet 2 MG PO QAM Gabapentin (Gabapentin) 800 Mg Tablet 1,600 MG PO TID Insulin Human Lispro (HumaLOG U100 Insulin Vial) 100 Unit/Ml Unit 0.9 UNITS SQ ASDIRECTED INSULILN 22 UNITS/DAY BASAL RATE PER INSULIN PUMP. Isosorbide MN ER (Isosorbide MN ER) 30 Mg Tab.er.24h 30 MG PO DAILY Methylphenidate ER (Concerta) 36 Mg Tab.er.24 36 MG PO QAM Metoprolol Succinate ER (Metoprolol Succinate ER) 25 Mg Tab.er.24h 25 MG PO DAILY Multivitamin (Multivitamins) 1 Each Capsule 1 EACH PO DAILY Progesterone,Micronized (Progesterone) 100 Mg Capsule 200 MG PO QAM Thyroid,Pork ([place] Thyroid) 60 Mg Tablet 30 MG PO DAILY Venlafaxine ER (Venlafaxine ER) 225 Mg Tab.er.24 225 MG PO QAM General Time Seen by MD: 16:56 Chief Complaint Chest pain Hx Obtained From: Patient Arrived By: Walk-in Sudden in Onset?: Yes Onset Occurred: 1 - 4 hours ago Recent Healthcare: Recent doctor visit Similar Sx Previous: Yes Past Medical History Past Medical History Notes: Admit to [facility] for DKA 10/2015, + CAD/troponins -> Taken to laboratory veterinarian (complex anatomy - see cardiology notes, plan for possible intervention at [facility] possibly next month-not scheduled Past Medical History Gastroporesis Franky's disease Type 1 diabetes mellitus for 21+ years -peripheral neuropathy -History of DKA. History of alcohol abuse, quit four years ago. Hypothyroidism. LUANA plus BSO for painful endometriosis. History of difficulty emptying bladder, on Flomax Frontal lobe syndrome Sleep apnea PTSD Interstitial cystitis Adhesive capsulitis H. pylori infection Pancreatitis Reports: Coronary artery disease, Diabetes mellitus Reports: Depression, Migraines Past Surgical History Colonoscopy Tubal ligation Cholecystectomy Hysterectomy Caredaiac Cath - complex lesion involving LAD with significant collaterals Family History [place] HTN Hyperlipidemia NO diabetes in family Reports: Cancer Smoking History Former Smoker Social History Alcohol abuse x25 years with 6 years of sobriety Alcohol Use: Denies alcohol use Drug Use: Denies drug use Other Social History: Local resident Ambulatory Status Independent Review of Systems Respiratory: Reports: Shortness of breath, Denies: Non-productive cough Cardiovascular: Reports: Chest pain (pressure) GI: Denies: Abdominal pain, Vomiting Musculoskeletal: Denies: Back pain, Neck pain Skin: Denies Rash Neurologic: Reports: Lightheaded, Syncope Complete sys rev & neg: except as marked. Physical Exam Initial Vital Signs Vital Signs (First) Date Time Temp Pulse Resp B/P Pulse Ox O2 Delivery O2 Flow Rate FiO2 03/23/17 16:48 36.7 121 24 115/71 100 Room Air 03/23/17 18:00 2 Initial VS: Reviewed General/Constitutional: Awake, Alert Respiratory / Chest: Atraumatic, Breath sounds NL, Breath sounds = bilat, No respiratory distress Cardiovascular: Regular rhythm, Heart sounds NL, No gallop, No murmurs, No rubs borderline tachycardic Abdomen: Atraumatic, Soft, Non-tender Neck: Atraumatic, Supple, Full range of motion Back: Atraumatic, Full range of motion Lower Extremity / Pelvis / MS: Atraumatic, Full range of motion no calf swelling or tenderness Skin: Atraumatic, Color NL, No rash, Warm, Dry Neurologic: Oriented X3, Speech NL, No motor deficits, No sensory deficits Psychiatric: Affect NL Abnormal Mood/Affect: Positive: Anxious Head / Eyes: Atraumatic, Normocephalic, PERRL, EOMI ENT: Atraumatic, Airway patent, Mucous membranes moist Upper Extremity / MS: Atraumatic, Full range of motion Interpretation & Diagnostics Lab Results Interpretation Result Diagram: 03/23/17 1700 03/23/17 1700 Test 03/23/17 17:00 White Blood Count 12.0th/mm3 (3.8-10.1) Red Blood Count 4.29mil/mm3 (3.90-5.20) Hemoglobin 14.0g/dL (12.0-15.6) Hematocrit 40.5% (35.0-46.0) Mean Corpuscular Volume 94.4fL (81-100) Mean Corpuscular Hemoglobin 32.6pg (27.0-35.0) Mean Corpuscular Hemoglobin Concent 34.6% (32.0-37.0) Red Cell Distribution Width 14.4% (12.3-15.4) Platelet Count 325bil/L (150-400) Neutrophils (%) (Auto) 69.6% (40-74) Lymphocytes (%) (Auto) 22.7% (14-46) Monocytes (%) (Auto) 6.9% (4-12) Eosinophils (%) (Auto) 0.3% (0-5) Basophils (%) (Auto) 0.3% (0-3) Prothrombin Time 9.4sec (8.1-12.5) Prothromb Time International Ratio 0.88ratio D-Dimer 0.96mg/L FEU (<0.50) Sodium Level 135mEq/L (134-144) Potassium Level 4.0mEq/L (3.5-5.2) Chloride Level 99mEq/L (97-108) Carbon Dioxide Level 17mmol/L (18-29) Blood Urea Nitrogen 24mg/dL (6-24) Creatinine 1.12mg/dL (0.57-1.00) Estimat Glomerular Filtration Rate 74mL/min (>59) Glucose Level 263mg/dL (60-99) Calcium Level 10.3mg/dL (8.5-10.1) Magnesium Level 1.9mg/dL (1.6-2.6) Total Bilirubin 0.2mg/dL (0.0-1.2) Aspartate Amino Transf (AST/SGOT) 37U/L (0-50) Alanine Aminotransferase (ALT/SGPT) 30U/L (0-32) Alkaline Phosphatase 126U/L (25-150) Pro-B-Type Natriuretic Peptide 40.57pg/mL (0-249) Total Protein 7.1g/dL (6.4-8.4) Albumin 4.1g/dL (3.4-5.0) Hold Soto Top Tube Received (Received) ECG Interpretation ECG Interpretation: sinus tachycardia with a rate of 108 normal axis normal interval no ST segment elevation no T wave inversions when compared with previous dated 03/03/2017, there are no acute changes pt has low voltage throughout, which is not new Time: 17:00 Interpreted by: ED physician Re-Eval/Medical Decision Med Decision/Clinical Course The pt is a 46 year old female on Plavix with a with a history of type 1 diabetes, CAD, DKA, [place] and LAD stent placed at in 07/2016 who presents to the ED complaining of chest pain. The pt began experienced a brief episode of syncope at 14:30 today in addition to lightheadedness, shortness of breath and chest pressure. These symptoms are similar to those she experienced during her [place]. The pt is concerned because her stent is currently on recall and she believes that it may be failing. She was last seen in this ED complaining of rapid heart rate and shortness of breath. CT angiogram showed no evidence of PE and the pt was noted to not have signs of DKA. Serial troponin studies were negative. The pt was discussed with cardiology, who recommended discharge with outpatient management. The pt is on an 81 mg aspirin daily, which she last took this morning. Here in the emergency department the patient is afebrile with stable vital signs and examination as above. The patient was treated with morphine, aspirin and Ativan in the ED. she reported symptom improvement. EKG: sinus tachycardia with a rate of 108 normal axis normal interval no ST segment elevation no T wave inversions when compared with previous dated 03/03/2017, there are no acute changes pt has low voltage throughout, which is not new Laboratory studies notable as below: CBC unremarkable except leukocytosis of 12 glucose 263 CO2 17 Troponin negative BNP within normal limits D-dimer elevated at 0.96 CT angiogram of the chest obtained as below: No evidence for pulmonary embolus. The lungs are clear of acute disease. Several small blebs are seen in the left lung. Cause of shortness of breath is not identified. Patient has significant cardiac disease, present with chest pain similar to that that she experienced with her previous episode of acute coronary syndrome prior to stent placement and has elevated troponin. I feel that the patient requires admission for further assessment of acute coronary syndrome, serial troponins, cardiology consultation and possible heparinization. Patient was discussed with admitting hospitalist and accepted for further management. Time of Eval: 16:56 Patient Status: Condition improved Re-Evaluation/Progress Note: Pt informed of the diagnosis and plan for admission during the initial interview. The pt understands and agrees with the plan. All questions are addressed at this time. Consultation : Referral / Consult Name: Theo Cheng MD Consulted With: Hospitalist Call Returned at: 18:19 Event Planning Intern: Agrees with eval, Agrees with plan, Accepts admit Note: Spoke with Dr. Cheng, hospitalist, regarding pt's case. Dr. Cheng agrees with the evaluation and agrees to admit the pt. Counseled Regarding: Diagnosis, Lab results, Need for admission Discharge & Departure Primary Impression: Chest pain Chest pain type: unspecified Qualified Code: R07.9 - Chest pain, unspecified Additional Impressions: NSTEMI (non-ST elevated myocardial infarction) Elevated troponin Shortness of breath History of heart artery stent Disposition: ADMITTED TO HOSPITAL Discharge Condition All VS Reviewed: Yes Condition: Stable Referrals: Shruthi Quinn (PCP) Scribe Attestation Portions of this note were transcribed by Lobo Courtney. I, Dr. Davison personally performed the history, physical exam and medical decision-making; I reviewed and confirmed the accuracy of the information in the transcribed note. copies to: Shruthi Quinn Beck O MD Mar 23, 2017 16:57 LOBO COURTNEY Mar 23, 2017 17:08
[2017-03-23 17:29] LABS: BASOPHILS % (AUTO) 0.3 % (0-3); EOSINOPHILS % (AUTO) 0.3 % (0-5); MONOCYTES % (AUTO) 6.9 % (4-12); Mean Corpuscular Hemoglobin 32.6 pg (27.0-35.0); Mean Corpuscular Volume 94.4 fL (81-100); NEUTROPHILS % (AUTO) 69.6 % (40-74); Platelet Count 325 bil/L (150-400)
[2017-03-23] MEDS ORDERED: Alum-Mag Hydrox-Simeth 30 mL Suspension PO PRN ×2 (17:30→18:55)
[2017-03-23] MEDS ORDERED: Ondansetron 2 mg/mL 2 mL Inj IVPUSH PRN ×2 (17:30→18:55)
--- NOTE | 2017-03-23 17:37 | DRSVH ---
PROCEDURE: X-RAY CHEST ONE VIEW, PORTABLE ([id number]) INDICATIONS: chest pain TECHNIQUE: One view of the chest was acquired. COMPARISON: [facility], CR, XR CHEST 1VW (PORTABLE), 02/28/2017, 13:11. FINDINGS: Surgical changes and devices: surveillance monitor leads are seen over the chest. Lungs and pleura: No pleural effusions or pneumothorax. Lungs are clear. Mediastinum: Mediastinal contours appear normal. Heart size is normal. Bones and chest wall: No suspicious bony lesions. Overlying soft tissues appear unremarkable. IMPRESSION: Acute disease is not seen in the upright portable chest. Dictated by: Chavo Sylvester M.D. on 03/23/2017 at 17:35 Approved by: Chavo Sylvester M.D. on 03/23/2017 at 17:35
[2017-03-23 17:45] LABS: D-Dimer 0.96 mg/L FEU (<0.50); INR 0.88 ratio
[2017-03-23] MEDS ORDERED: ISOS30TA4 PO (17:56)
[2017-03-23 18:00] VITALS: BP 103/78; PULSE 90; RESP 22; O2SAT 98
[2017-03-23 18:11] LABS: Magnesium 1.9 mg/dL (1.6-2.6)
[2017-03-23 18:19] LABS: TROPONIN T < 0.010 ug/L (0.0-0.011)
[2017-03-23 18:40] VITALS: BP 125/64; PULSE 94; RESP 19; O2SAT 97
[2017-03-23] MEDS ORDERED: HYDROcodone-APAP 5-325 mg Tablet PO PRN (18:55)
[2017-03-23] MEDS ORDERED: Polyethylene Glycol (PEG) 17 Gm Powder PO PRN (18:55)
--- NOTE | 2017-03-23 18:56 | DRSVH ---
PROCEDURE: CT ANGIO CHEST PULMONARY EMBOLISM ([id number]) INDICATIONS: sob, elevated dimer TECHNIQUE: After the administration of intravenous contrast, 2 mm thick sections acquired from the pulmonary api nicolasa to the posterior costophrenic angles. 3-dimensional maximum intensity projection (MIP) coronal a nd sagittal reformats were then acquired through the thorax. For radiation dose reduction, the follo wing was used: automated exposure control, adjustment of mA and/or kV according to patient size. COMPARISON: [facility], CR, XR CHEST 1VW (PORTABLE), 03/23/2017, 17:05. FINDINGS: Image quality: Excellent. Pulmonary arteries: Pulmonary arteries are normal in size, and demonstrate no intraluminal filling d efects to suggest central pulmonary embolism. Lungs and pleura: Lungs are clear. No pleural effusions or pneumothorax. Central and peripheral ai rways are patent. Mediastinum: Heart size is normal, without pericardial effusion. No mediastinal or hilar adenopathy . Thoracic aorta is normal in caliber and enhancement. Esophagus is normal in caliber, without hiat al hernia. Bones and chest wall: No suspicious bony lesions. Ribs and thoracic spine appear intact throughout. Thyroid gland is within normal limits. No axillary or supraclavicular adenopathy. Abdomen: Visualized upper abdominal solid organs appear normal in the early arterial phase of enhanc ement. IMPRESSION: No evidence for pulmonary embolus. The lungs are clear of acute disease. Several small bl ebs are seen in the left lung. Cause of shortness of breath is not identified. Dictated by: Chavo Sylvester M.D. on 03/23/2017 at 18:51 Approved by: Chavo Sylvester M.D. on 03/23/2017 at 18:55
[2017-03-23 19:03] VITALS: BP 110/67; PULSE 89; RESP 18; O2SAT 93
[2017-03-23] MEDS: 0.9% Sodium Chloride 1,000 ML IV SCH (20:23)
[2017-03-23] MEDS ORDERED: Famotidine Inj 20 MG in IV Premix 1 EACH IV SCH (20:30)
[2017-03-23] MEDS ORDERED: VENLAFAXINE 225 MG PO SCH (21:00)
[2017-03-23] MEDS ORDERED: METHYLPHENIDATE 36 MG PO SCH (21:00)
[2017-03-23] MEDS ORDERED: ESTRADIOL 2 MG PO SCH (21:00)
[2017-03-23 21:12] VITALS: BP 102/62; PULSE 82; RESP 18; O2SAT 96
[2017-03-23] MEDS ORDERED: Glucose 40% Oral Gel 15 Gm Tube PO PRN (21:20)
--- NOTE | 2017-03-23 21:24 | PCM.HPMED ---
Subjective Date of Service Mar 23, 2017 Primary Provider: Admitting Physician: Primary Care Physician: Shruthi Quinn Attending Physician: Admit Status: From the Emergency Department, Admit to Blue Team Chief Complaint: Chest pressure History of Present Illness: Ms. Joiner is a 46-year-old female with past medical history of [place] status post stent placement to LAD at [facility] on 08/02/2016, diabetes type I, DKA, who presents to the ED with chief complaint of chest pressure and syncopal episode. She states that this afternoon she had 2 episodes of lightheadedness, shortness of breath and some chest pressure which caused her to faint briefly. She states the symptoms are similar to those that she experienced during her last [place]. She states that her stent which she received earlier this year is on recall and [place] and she is concerned that it may be failing. At time of interview she does not state any chest pain shortness of breath or discomfort. 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 She denies current chest pain, shortness of breath, nausea vomiting, headache, visual disturbances, abdominal pain. In the ED CT angiogram and CXR negative. Troponin negative x 1. Patient admitted for chest pain rule out Review of Systems: A comprehensive review of systems was conducted with the patient and found to be negative except as above in the history of present illness. Allergies Coded Allergies: Penicillins (Verified Allergy, Severe, ANAPHYLAXIS, 03/23/17) quetiapine (Verified Allergy, Unknown, 03/23/17) Uncoded Allergies: nicotine patch (Adverse Reaction, Intermediate, 03/26/13) Home Medications Amitriptyline (Amitriptyline) 25 Mg Tab 50 MG PO HS Aspirin (Aspirin) 81 Mg Tablet 81 MG PO DAILY Atorvastatin Calcium (Atorvastatin Calcium) 20 Mg Tablet 20 MG PO DAILY Clopidogrel (Clopidogrel) 75 Mg Tablet 75 MG PO DAILY Estradiol (Estradiol) 2 Mg Tablet 2 MG PO QAM Gabapentin (Gabapentin) 800 Mg Tablet 1,600 MG PO TID Insulin Human Lispro (HumaLOG U100 Insulin Vial) 100 Unit/Ml Unit 0.9 UNITS SQ ASDIRECTED INSULILN 22 UNITS/DAY BASAL RATE PER INSULIN PUMP. Isosorbide MN ER (Isosorbide MN ER) 30 Mg Tab.er.24h 30 MG PO DAILY Methylphenidate ER (Concerta) 36 Mg Tab.er.24 36 MG PO QAM Metoprolol Succinate ER (Metoprolol Succinate ER) 25 Mg Tab.er.24h 25 MG PO DAILY Multivitamin (Multivitamins) 1 Each Capsule 1 EACH PO DAILY Progesterone,Micronized (Progesterone) 100 Mg Capsule 200 MG PO QAM Thyroid,Pork ([place] Thyroid) 60 Mg Tablet 30 MG PO DAILY Venlafaxine ER (Venlafaxine ER) 225 Mg Tab.er.24 225 MG PO QAM PMH Gastroporesis Franky's disease Type 1 diabetes mellitus for 21+ years -peripheral neuropathy -History of DKA. History of alcohol abuse, quit four years ago. Hypothyroidism. LUANA plus BSO for painful endometriosis. History of difficulty emptying bladder, on Flomax Frontal lobe syndrome Sleep apnea PTSD Interstitial cystitis Adhesive capsulitis H. pylori infection Pancreatitis Reports: Coronary artery disease, Diabetes mellitus Reports: Depression, Migraines Surgical History Colonoscopy Tubal ligation Cholecystectomy Hysterectomy Caredaiac Cath - complex lesion involving LAD with significant collaterals Family History Father unknown Mother passed from glossopharyngeal cancer with liver metastasis Per previous EMR record [place] HTN Hyperlipidemia NO diabetes in family Reports: Cancer Social History Hx Alcohol Use: No Hx Substance Use: No Hx Tobacco Use: Yes (USES E-CIGARETTE. Additionally, h/o tobacco - 30 pyh, but quit 6 mo ago) Smoking Status: Current Every Day Smoker (1 pack per day smoker), Former Smoker Living Arrangement: with Family Exam Vital Signs Vital Sign - Last Date Time Temp Pulse Resp B/P Pulse Ox O2 Delivery O2 Flow Rate FiO2 03/23/17 16:48 36.7 121 24 115/71 100 Room Air Exam General: Awake and alert laying in hospital bed in no acute distress, well- developed, well-nourished, appropriately interactive HEENT: Normocephalic, atraumatic. External ears without defect. Pupils equal, round, and reactive to light and accommodation. Neck: Supple with full range of motion. No jugular venous distension. Healing scar right lateral neck from recent cyst removal. Non-erythematous nontender to palpation Cardiovascular: Regular rate and rhythm with no murmurs, rubs, or gallops appreciated Pulmonary: Clear to auscultation bilaterally with no crackles, wheezes, or rhonchi. Normal respiratory effort with no use of accessory muscles. Abdomen: Bowel tones present. Soft, mild tenderness to suprapubic area, nondistended. Extremities: No clubbing, cyanosis, edema. Skin: Normal temperature, turgor, and texture Neurological: Cranial nerves grossly intact. Psychiatric: Normal mood and affect. Alert and oriented to person, place, and time. Lab and Diagnostics Result Diagram: 03/23/17 1700 X-Rays, CTs and MRIs . X-RAY CHEST ONE VIEW, PORTABLE IMPRESSION: Acute disease is not seen in the upright portable chest. Dictated by: Chavo Sylvester M.D. on 03/23/2017 CT ANGIO CHEST PULMONARY EMBOLISM IMPRESSION: No evidence for pulmonary embolus. The lungs are clear of acute disease. Several small blebs are seen in the left lung. Cause of shortness of breath is not identified. Dictated by: Chavo Sylvester M.D. on 03/23/2017 12-lead ECG sinus tachycardia with a rate of 108 normal axis normal interval no ST segment elevation no T wave inversions when compared with previous dated 03/03/2017, there are no acute changes pt has low voltage throughout, which is not new Assessment & Plan Ms. Joiner is a 46-year-old female with past medical history of [place] status post stent placement to LAD at [facility] on 08/02/2016, diabetes type I, DKA, who presents to the ED with chief complaint of chest pressure and syncopal episode. Coronary artery disease with stent placement. Present on admission. Ongoing Admitted for Chest pain/pressure Patient has history of [place] 2/2 LAD occlusion requiring stent placement in July 2016 EKG as above Imaging as above Initial troponin negative, continue to trend Last echo 02/03/2017, last stress test 02/04/2017 Continued home meds metoprolol, Plavix, statin, ASA Reported Syncopal episode. Not present on admission. Under evaluation Patient states started medication Imdur today This medication appears on med rec though not an outpatient records, held medication Cardiology consult requested, recommendations appreciated Telemetry Diabetes mellitus type I. Present on admission. Ongoing Continue home insulin pump Pharmacy will help dose and instructions Acute on chronic kidney injury 100 mL an hour normal saline Chronic conditions Peripheral neuropathy. POA Continue home gabapentin Hypothyroidism. POA Continue home [place] Thyroid Depression. POA Continue home medications Migraines. POA Continue home amitriptyline Patient is admitted under observation status with expected length of stay less than 2 midnights due to severity of presenting symptoms, risk of adverse event, and complexity of treatment plan. GI Prophylaxis: H2 rpema VTE Prophylaxis: Sub-Q Heparin (Unfractionated) Resuscitation Status: CPR: Attempt Resuscitation Attending Statement The patient was seen and examined together with Dr. Bishop on 03/23 and I agree with the history, exam and plan as outlined in the note above. MACHELLE BISHOP DO Mar 23, 2017 18:09 Theo Cheng MD Mar 24, 2017 01:20
[2017-03-23] MEDS ORDERED: Insulin LISPRO 300 Unit/3 mL Inj SUBQ SCH ×2 (21:30→22:00)
[2017-03-23] MEDS ORDERED: Dextrose 10% 250 ML IV PRN (21:30)
--- NOTE | 2017-03-23 21:42 | NUR ---
Admit Admitted pt on [facility] [place]. Upon arrival pt denies chest pain, sob, n/v or abd discomfort. With insulin pump on the left arm. Pt's VSS, and has been afebrile. Telemetry noted SR 90's could go Sinus Tach 120's with activity. Continuing to monitor.
[2017-03-23 23:47] VITALS: PULSE 83
[2017-03-24 00:13] VITALS: BP 106/67; PULSE 83; RESP 18; O2SAT 95
[2017-03-24] MEDS: Heparin 5,000 Unit/mL Inj SUBQ SCH ×2 (00:26→08:37)
[2017-03-24 05:26] LABS: BASOPHILS % (AUTO) 0.4 % (0-3); EOSINOPHILS % (AUTO) 2.4 % (0-5); MONOCYTES % (AUTO) 8.9 % (4-12); Mean Corpuscular Hemoglobin 31.8 pg (27.0-35.0); Mean Corpuscular Volume 96.3 fL (81-100); Platelet Count 271 bil/L (150-400)
[2017-03-24 06:01] LABS: TROPONIN T < 0.010 ug/L (0.0-0.011)
[2017-03-24 06:04] VITALS: BP 95/57; PULSE 76; RESP 18; O2SAT 94
[2017-03-24] MEDS: 0.9% Sodium Chloride 1,000 ML IV SCH (06:50)
[2017-03-24] MEDS ORDERED: GABAPENTIN 1600 MG PO SCH (08:30)
[2017-03-24] MEDS ORDERED: MeTOProlol XL 25 mg ER24 Tablet PO SCH (08:30)
[2017-03-24] MEDS ORDERED: THYROID PORK 30 MG PO SCH (08:30)
[2017-03-24] MEDS ORDERED: [UNRECOGNIZED DRUG - OTHER] SUBQ SCH (08:30)
[2017-03-24] MEDS ORDERED: Venlafaxine XR 75 mg ER24 Capsule PO SCH (08:30)
[2017-03-24] MEDS ORDERED: Progesterone 100 mg Micronized Capsule PO SCH (08:30)
[2017-03-24 09:06] VITALS: PULSE 76
--- NOTE | 2017-03-24 09:09 | NUR ---
Social Work-initial assessment/ readiness for discharge: Data:See initial assessment. P tis a 46 y/o female who was admitted on 03/23/17 for chest pain per H&P. Pt's insurance is [employer] nad PCP is ISABELA Ortiz. EMR Reviewed. SW met with pt at bedside, SW role explained. Pt is alert and oriented x3. Pt resides at home with family , son, daughter, and grandchildren, in [place] where she remains independent with ADLs. Pt drives and does not use any DME. Pt has no HH or SNF history. Pt has no terminal operations supervisor care insurance or VA benefits. SW discussed DPOA/ advanced directive, pt declining any information at this time. No concerns noted at this time regarding capacity for self care per RN or MD. Pt confirms her son will provide transport home. SW provided pt with discharge planning checklist and encouraged pt to call with any questions, phone number provided on white board in room. No anticipated discharge needs. SW will continue to follow if needs arise. Assessment:Pt who is independent at baseline. Plan:Pt to discharge home when medically stable via POV. No anticipated discharge needs. SW will continue to follow if needs arise. MARCOS Kline Addendum: 03/24/17 at 0917 by MIGUEL ANGEL BURR Amended: Links added.
[2017-03-24] MEDS ORDERED: Insulin GLARgine 100 Unit/mL Syringe SUBQ SCH (09:10)
--- NOTE | 2017-03-24 10:43 | NUR ---
Glargine new orders for glargine, patient refused," it will react with my insulin pump per patient report. "
[2017-03-24 10:51] VITALS: BP 118/66; PULSE 83; RESP 18; O2SAT 98
--- NOTE | 2017-03-24 11:08 | PCM.DIMED ---
Discharge Instructions Date of Service Mar 24, 2017 Dates of Hospitalization Mar 23, 2017 at 18:30 Discharge Diagnosis Discharge Diagnosis acute dx syncopal episodes likely hypotension, medication-induced, Imdur. Acute on chronic kidney injury chronic dx Coronary artery disease with GARY in LAD in Diabetes mellitus type I Peripheral neuropathy Hypothyroidism Depression Migraines. Diet Discharge Diet: Low fat, Low Sodium, Heart Healthy Activity Discharge Activity: No restrictions Call your provider Call your provider for: Shortness of breath, Chest pain Patient Instructions Patient Instructions You were hospitalized with syncopal episode with possible heart attack. You underwent serial blood tests and EKG which didn't show any evidence of heart attack. It was believed to be due to low blood pressure from you new medicine "imdur". Please follow up with as scheduled for possible cardiac intervention. Pleas stop taking Imdur and monitor blood pressure closely, once a day in the morning, Please return to hospital if you feel similar symptoms with recurrent syncope. Follow-up Provider: Tito Knight MD Follow-up with PCP in: 1 week Osmar Miranda MD Mar 24, 2017 10:53
--- NOTE | 2017-03-24 11:47 | NUR ---
Discharge patient is alert and orientedX3. Denies chest pain or any discomfort. new orders for discharge. Reviewed discharge paper work, discharge continuing medications, follow up appointments with settlement processor which patient already scheduled and follow up with PCP which patient will schedule. Discontinued Tele prior to discharge and peripheral IV. patient left unit [id number] preferred walking with her son.
--- NOTE | 2017-03-24 11:53 | NUR ---
Social Work-discharge: Data:EMR Reviewed. Pt is on day 1 of hospitalization for chest pain per H&P. Pt is medically stable for discharge. Pt resides at home with family and has been up independent in her room. No discharge needs identified. All updated and agreeable to plan. Assessment:Pt who is independent at baseline. Plan:Pt to discharge home today via POV. No discharge needs identified. All updated and agreeable to plan. MARCOS Kline
--- NOTE | 2017-03-24 13:17 | PCM.DC.MED ---
Discharge Summary Date of Service Mar 24, 2017 Dates of Hospitalization Date of Hospital Admission Mar 23, 2017 at 18:30 Date of Discharge: Mar 24, 2017 Providers: Admitting Physician: Theo Cheng MD Primary Care Physician: Shruthi Quinn Attending Physician: Osmar Miranda MD Diagnosis at Time of Discharge Diagnosis at Time of Discharge acute dx syncopal episodes likely hypotension, medication-induced, Imdur. Acute on chronic kidney injury chronic dx Coronary artery disease with GARY in LAD in Diabetes mellitus type I Peripheral neuropathy Hypothyroidism Depression Migraines. Procedures XRay, CTs & MRIs . X-RAY CHEST ONE VIEW, PORTABLE IMPRESSION: Acute disease is not seen in the upright portable chest. Dictated by: Chavo Sylvester M.D. on 03/23/2017 CT ANGIO CHEST PULMONARY EMBOLISM IMPRESSION: No evidence for pulmonary embolus. The lungs are clear of acute disease. Several small blebs are seen in the left lung. Cause of shortness of breath is not identified. Dictated by: Chavo Sylvester M.D. on 03/23/2017 ECG 12 Lead sinus tachycardia with a rate of 108 normal axis normal interval no ST segment elevation no T wave inversions when compared with previous dated 03/03/2017, there are no acute changes pt has low voltage throughout, which is not new Brief History HPI obtained by Dr. Cheng on 03/23 Ms. Joiner is a 46-year-old female with past medical history of [place] status post stent placement to LAD at [facility] on 08/02/2016, diabetes type I, DKA, who presents to the ED with chief complaint of chest pressure and syncopal episode. She states that this afternoon she had 2 episodes of lightheadedness, shortness of breath and some chest pressure which caused her to faint briefly. She states the symptoms are similar to those that she experienced during her last [place]. She states that her stent which she received earlier this year is on recall and [place] and she is concerned that it may be failing. At time of interview she does not state any chest pain shortness of breath or discomfort. 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 She denies current chest pain, shortness of breath, nausea vomiting, headache, visual disturbances, abdominal pain. In the ED CT angiogram and CXR negative. Troponin negative x 1. Patient admitted for chest pain rule out Hospital Course Ms. Joiner is a 46-year-old female with past medical history of [place] status post stent placement to LAD at [facility] on 08/02/2016, diabetes type I, DKA, who presents to the ED with chief complaint of chest pressure and syncopal episode. Pt was admitted given concern for ACS contributing syncopal episode. No event on telemetry noted. Serial tropx3 negative. EKG didn't show any ischemic chg. Pt remained asymptomatic throughout. It's likely that newly started Imdur likely caused hypotension, resulted her syncope given low bp SBP80s per patient at the time of syncope. Imdur was held, pt remained asymptomatic, BP remained more stable. 100-110s, pt was ambulating without dizziness, chest pain, deemed safe for d/c. given recent ischemic w/u and known CAD, no further ischemic w/u was persued. pt has close FU with as she was told that her stent is failing, there was tentative plan for another elective PCI per patient. Coronary artery disease with stent placement. Present on admission. Ongoing Admitted for Chest pain/pressure Patient has history of [place] 2/2 LAD occlusion requiring stent placement in July 2016 EKG as above Imaging as above Initial troponin negative, continue to trend Last echo 02/03/2017, last stress test 02/04/2017 Continued home meds metoprolol, Plavix, statin, ASA Reported Syncopal episode. Not present on admission. Under evaluation Patient states started medication Imdur today This medication appears on med rec though not an outpatient records, held medication Cardiology consult requested, recommendations appreciated Telemetry Diabetes mellitus type I. Present on admission. Ongoing Continue home insulin pump Pharmacy will help dose and instructions Acute on chronic kidney injury 100 mL an hour normal saline Chronic conditions Peripheral neuropathy. POA Continue home gabapentin Hypothyroidism. POA Continue home Ruth Thyroid Depression. POA Continue home medications Migraines. POA Continue home amitriptyline Patient is admitted under observation status with expected length of stay less than 2 midnights due to severity of presenting symptoms, risk of adverse event, and complexity of treatment plan. Exam Vital Signs (Last) Date Time Temp Pulse Resp B/P Pulse Ox O2 Delivery O2 Flow Rate FiO2 03/24/17 10:51 36.8 83 18 118/66 98 Room Air 03/23/17 18:00 2 Exam pt was examined on the day of d/c Test 03/23/17 17:00 03/24/17 05:05 Prothrombin Time 9.4sec (8.1-12.5) Prothromb Time International Ratio 0.88ratio D-Dimer 0.96mg/L FEU (<0.50) Magnesium Level 1.9mg/dL (1.6-2.6) Pro-B-Type Natriuretic Peptide 40.57pg/mL (0-249) Hold [place]oto Top Tube Received (Received) White Blood Count 7.5th/mm3 (3.8-10.1) Red Blood Count 3.49mil/mm3 (3.90-5.20) Hemoglobin 11.1g/dL (12.0-15.6) Hematocrit 33.6% (35.0-46.0) Mean Corpuscular Volume 96.3fL (81-100) Mean Corpuscular Hemoglobin 31.8pg (27.0-35.0) Mean Corpuscular Hemoglobin Concent 33.0% (32.0-37.0) Red Cell Distribution Width 14.5% (12.3-15.4) Platelet Count 271bil/L (150-400) Neutrophils (%) (Auto) 52.0% (40-74) Lymphocytes (%) (Auto) 36.2% (14-46) Monocytes (%) (Auto) 8.9% (4-12) Eosinophils (%) (Auto) 2.4% (0-5) Basophils (%) (Auto) 0.4% (0-3) Sodium Level 134mEq/L (134-144) Potassium Level 3.9mEq/L (3.5-5.2) Chloride Level 103mEq/L (97-108) Carbon Dioxide Level 19mmol/L (18-29) Blood Urea Nitrogen 17mg/dL (6-24) Creatinine 0.68mg/dL (0.57-1.00) Estimat Glomerular Filtration Rate 132mL/min (>59) Glucose Level 332mg/dL (60-99) Calcium Level 8.7mg/dL (8.5-10.1) Total Bilirubin 0.2mg/dL (0.0-1.2) Aspartate Amino Transf (AST/SGOT) 23U/L (0-50) Alanine Aminotransferase (ALT/SGPT) 21U/L (0-32) Alkaline Phosphatase 103U/L (25-150) Troponin T < 0.010ug/L (0.0-0.011) Total Protein 5.1g/dL (6.4-8.4) Albumin 3.0g/dL (3.4-5.0) Discharge Medications Discharge Medications Amitriptyline (Amitriptyline) 25 Mg Tab 50 MG PO HS (Reported) Aspirin (Aspirin) 81 Mg Tablet 81 MG PO DAILY Prescribed by: ERIKA GRIJALVA DO Atorvastatin Calcium (Atorvastatin Calcium) 20 Mg Tablet 20 MG PO DAILY ( Reported) Clopidogrel (Clopidogrel) 75 Mg Tablet 75 MG PO DAILY Prescribed by: ERIKA GRIJALVA DO Estradiol (Estradiol) 2 Mg Tablet 2 MG PO QAM (Reported) Gabapentin (Gabapentin) 800 Mg Tablet 1,600 MG PO TID (Reported) Insulin Human Lispro (HumaLOG U100 Insulin Vial) 100 Unit/Ml Unit 0.9 UNITS SQ ASDIRECTED (Reported) INSULILN 22 UNITS/DAY BASAL RATE PER INSULIN PUMP. Methylphenidate ER (Concerta) 36 Mg Tab.er.24 36 MG PO QAM (Reported) Metoprolol Succinate ER (Metoprolol Succinate ER) 25 Mg Tab.er.24h 25 MG PO DAILY Prescribed by: KIMBERLYN OLIVEIRA DO Multivitamin (Multivitamins) 1 Each Capsule 1 EACH PO DAILY (Reported) Progesterone,Micronized (Progesterone) 100 Mg Capsule 200 MG PO QAM (Reported) Thyroid,Pork (Ruth Thyroid) 60 Mg Tablet 30 MG PO DAILY (Reported) Venlafaxine ER (Venlafaxine ER) 225 Mg Tab.er.24 225 MG PO QAM (Reported) Followup Plan Disposition: home Discharge Diet: Low fat, Low Sodium, Heart Healthy Discharge Activity: No restrictions Patient Instructions You were hospitalized with syncopal episode with possible heart attack. You underwent serial blood tests and EKG which didn't show any evidence of heart attack. It was believed to be due to low blood pressure from you new medicine "imdur". Please follow up with as scheduled for possible cardiac intervention. Pleas stop taking Imdur and monitor blood pressure closely, once a day in the morning, Please return to hospital if you feel similar symptoms with recurrent syncope. Follow-up Provider: Tito Knight MD Follow-up with PCP in: 1 week Time spent 65min Osmar Miranda MD Mar 24, 2017 13:17
--- NOTE | 2017-03-24 17:51 | NUR ---
spiritual care: pt request conversational visit and prayer. pt reflective about changes in her life, health concerns and goals. pt insightful and articulate about her challenges, hopes and marah. Reflective about her coping devices including aa and proactive steps for her emotional and physical health.
== END 2017-03-24 11:43 | disposition home or self-care (01) ==
LOC: SED 16:46 → MPC 18:30 → INTOOBSV 18:30
PROVIDERS: ADMIT Hospitalist; ATTEND Hospitalist
DX: R55 Syncope and collapse (principal); I95.2 Hypotension due to drugs; N17.9 Acute kidney failure, unspecified; R07.9 Chest pain, unspecified; I25.10 Atherosclerotic heart disease of native coronary artery without angina pectoris; E10.21 Type 1 diabetes mellitus with diabetic nephropathy; R79.89 Other specified abnormal findings of blood chemistry; E06.3 Autoimmune thyroiditis; E03.9 Hypothyroidism, unspecified; G47.33 Obstructive sleep apnea (adult) (pediatric); F43.10 Post-traumatic stress disorder, unspecified; F32.9 Major depressive disorder, single episode, unspecified; Z86.69 Personal history of other diseases of the nervous system and sense organs; Z86.73 Personal history of transient ischemic attack (TIA), and cerebral infarction without residual deficits; Z95.5 Presence of coronary angioplasty implant and graft; Z79.02 Long term (current) use of antithrombotics/antiplatelets; Z88.0 Allergy status to penicillin; Z88.8 Allergy status to other drugs, medicaments and biological substances; Z79.82 Long term (current) use of aspirin; Z90.710 Acquired absence of both cervix and uterus; Z87.891 Personal history of nicotine dependence
CPT/HCPCS: 36415; 71010; 71275; 80053; 83735; 83880; 84484; 85025; 85378; 85610; 93005; 96372; 96374; 96375; 96376; 99285; G0378; J1644; J1815; J2060; J2270; J2675; J7030; Q9967